=== PATIENT | male | born 1980 | race Caucasian/White ===

== ENCOUNTER 2021-06-30 13:54 | Day surgery (SDC) | payer BC, SELFPAY ==
[2021-06-30] VITALS (8 sets, daily range): BP systolic 127–155; BP diastolic 58–98; PULSE 77–99; RESP 16; TEMP 36.3–36.9; O2SAT 91–98; BMI 32.5
--- NOTE | 2021-06-30 10:10 | HP.PCM_ITS ---
History and Physical Date of Admission: 06/30/21 HISTORY AND PHYSICAL ? Ignacio Ibanez 1980 ? ? REFERRING PHYSICIAN: Rohit Melendez AP* ? CHIEF COMPLAINT: Consult (Perirectal Abscess) ? HPI: The patient is a 41 year old male with a complaint of perirectal abscess.?Duration of symptoms 2 days. ?Associated symptom possible perirectal abscess and drainage. ?Patient states history of perirectal abscesses feels similar. ?Has not used any OTC medication use. ?States pain is 6-7 out of 10 currently. ?Denies any trauma. ?Denies any fever body aches chills nausea vomiting abdominal pain cough chest pain shortness of breath change in bowel or bladder habits. ?Past medical history prescription medication use allergies revi ewed. ? His previous perirectal abscess had to be I&D in the OR.. ? The patient is being seen by me today at the request of Dr. Melendez for my opinion and advice regarding Perirectal abscess (primary encounter diagnosis). ? PAST MEDICAL HISTORY PAST MEDICAL HISTORY Diagnosis Date ? Eczema ? ? Perirectal abscess ? ? 06/2021 ? Ulcerative colitis (HCC) 2012 ? ? PAST SURGICAL HISTORY PAST SURGICAL HISTORY Procedure Laterality Date ? COLONOSCOPY GEN ANES ? ? ? I&D EYELID CYST ? 1980 ? ? CURRENT MEDICATIONS Current Outpatient Medications Medication Sig ? amoxicillin-clavulanic acid (AUGMENTIN) 875-125 mg per tablet Take 1 tablet by mouth twice daily for 7 days. ? multivit-min/folic/vit K/lycop (ONE-A-DAY MEN'S MULTIVITAMIN ORAL) Take by mouth. ? triamcinolone acetonide (KENALOG) 0.1 % cream Apply 1 application to affected area as needed. (Patient not taking: Reported on 06/29/2021 ) ? No current facility-administered medications for this visit. ? ? ALLERGIES: Patient has no known allergies. ? PERSONAL HISTORY: SOCIAL HISTORY Social History ? Tobacco Use ? Smoking status: Former Smoker ? ? Packs/day: 0.50 ? ? Start date: 1999 ? ? Quit date: 2007 ? ? Years since quittin.8 ? Smokeless tobacco: Never Used Substance Use Topics ? Alcohol use: Yes ? ? Comment: socially ? Drug use: No ? FAMILY HISTORY: FAMILY HISTORY FAMILY HISTORY Problem Relation Age of Onset ? Hypertension Mother ? ? Hypertension Father ? ? other (ASD) Father ? ? Hypertension Brother ? ? other (ASD) Brother ? ? other (bone tumor) Maternal Grandmother ? ? Colon Cancer Maternal Grandfather ? ? Hypertension Maternal Grandfather ? ? Stroke Maternal Grandfather ? ? other (esophageal cancer) Paternal Grandmother ? ? other (ASD) Sister ? ? other (ASD) Maternal Aunt ? ? ? REVIEW OF SYMPTOMS: The review of systems data was entered by the nurse and reviewed by me ? Nursing Notes: Aylin Jacobson 06/30/2021 8:32 AM Signed REVIEW OF SYSTEMS: General: The patient denies fatigue, denies weight loss, denies weight gain, denies feeling hot, and denies feelings of cold. Eyes: The patient denies glaucoma, denies eye injury/surgery, does not wear glasses or contacts. Ear/Nose/Throat: The patient denies allergies, denies hayfever, denies ear infections, and denies bloody noses. Cardiovascular: The patient denies chest pain, denies heart disease, denies high blood pressure,denies cardiac stent, denies prior heart attack, denies irregular heart beat, denies high cholesterol, denies poor circulation, denies heart failure, other cardiac issues, denies claudication, denies cold feet, denies peripheral arterial stent. Respiratory: The patient denies tuberculosis, denies pneumonia, denies frequent cough, denies pulmonary embolism, denies shortness of breath, and denies coughing up blood. Gastrointestinal: The patient denies difficulty swallowing, NOTES acid reflux, denies ulcers, denies vomiting, denies jaundice/hepatitis, denies gallbladder problems, denies black or tarry stools, denies hemorrhoids, denies bleeding from rectum, denies diverticulitis, denies constipation, denies diarrhea, denies loss of stool control, and denies hernias. Kidney/Bladder: The patient denies kidney stones, denies urine infections, and denies bloody urine. Skin: The patient denies a history of skin cancer, denies bleeding/changing moles, and denies a history of skin rash. Neurologic: The patient denies a history of epilepsy/convulsions, denies headaches, denies head/spinal injuries, and denies stroke/TIA. Psychiatric: The patient denies psychiatric medications, denies depression, and denies voices, denies substance abuse. Endocrine: The patient denies thyroid disorders, denies diabetes, and denies hormonal problems. Hematologic: The patient denies a history of bruising, denies bleeding, and denies anemia, denies blood clots. Infections: The patient denies a history of measles and mumps, denies rheumatic fever, and denies sexually transmitted diseases. Musculoskeletal: The patient denies back pain/injury, denies back problems, denies sciatica, denies knee/foot trouble, denies arthritis, or denies gout. ? ? When was patient's last Mammogram screening? N/A ? Last Colonoscopy: 2017 ? Aylin Jacobson ? PHYSICAL EXAMINATION: ? General: The patient is 41 year old male, well nourished, well hydrated in no acute distress. The patient is oriented to time, place, and person. ? VITALS: Blood pressure 130/81, pulse 103, temperature 36.7 ?C (98 ?F), height 18 8 cm (6' 2), weight 115.2 kg (254 lb), SpO2 98 %. ? HEENT: Normal cephalic, ataumatic, pupils are equally round, sclera are anicteric, mucous membranes are moist, oropharynx is clear. Neck has no masses, asymmetry or lymphadenopathy. Thyroid is unremarkable. ? Respiratory: Clear to auscultation and percussion. Normal respiratory excursion and pattern. ? Cardiac: Examination is regular rate and rhythm. ? Abdominal exam: Soft, nontender, with no palpable masses. No hepatosplenomegaly. No palpable hernias. ? Rectal exam: Significant induration and tenderness along the left side of the perianal area. Too exquisite to really even examine ? Extremities: no clubbing, cyanosis or edema. No adenopathy. ? Other: ? ? LABORATORY VALUES: As Noted ? RADIOLOGIC STUDIES: As Noted ? Assessment IMPRESSION: Perirectal abscess (primary encounter diagnosis) ? ? PLAN: Going to perform an incision and drainage of a perirectal abscess in the OR. The planned surgical procedure was discussed extensively with the patient. The risks, benefits, anticipated outcomes and possible complications were mentioned. My staff has also explained the procedure in understandable terms and the patient was given the option to take printed material concerning the planned procedure. The patient had the opportunity to ask questions concerning the planned procedure. The patient freely consents to the planned procedure. ? Patient understands that there is a good chance that he could develop a perianal fistula which could require further surgeries. ? Diagnoses: (K61.1) Perirectal abscess (primary encounter diagnosis) ? ? My findings have been communicated to Benigno Benavides MD via shared medical record. This note will be forwarded to Benigno Benavides MD. Return to Clinic: The patient is instructed to follow-up with me 1 week post operatively. ? COVID (Procedure Consent) Procedure Criteria ? Procedure Criteria: Yes Elective The surgeon/proceduralist and patient have discussed in detail the risk of exposure to and/or potential harm posed by the COVID-19 virus with having a surgery/procedure at this time versus the risk of? delaying the surgery/procedure. It is not possible to know either the risk of delaying the surgery or procedure or chance of getting an infection with perfect accuracy, but a joint decision was made between the patient and the surgeon/proceduralist ?to proceed at this time with the scheduled surgery/procedure as indicated on the consent form. ? ? ? Lexx Craft III, MD I have re-examined the patient. There are no clinical changes since date of exam.
[2021-06-30] MEDS: Cefotetan 2 GM in 0.9% NS 100 ML IV (14:12)
[2021-06-30] MEDS: Lactated Ringers 1,000 ML 15 ML IV (14:20)
[2021-06-30] MEDS: BUPIVACAINE LIPOSOME/PF 20 ML VIAL OPERA.SITE (16:25)
--- NOTE | 2021-06-30 16:39 | PCM.OPRPT ---
Problems Associated Problem List Diagnoses (1) Perirectal abscess: Report of Operation Date of Procedure: 06/30/21 Pre-Operative Diagnosis: Perirectal abscess Post-Operative Diagnosis: Same Surgery/Procedure Performed:: Incision and drainage of perirectal abscess Surgeon: Lexx Craft tubing mill setter: None Type of Anesthesia: General Anesthesiologist: Steve Silva Description of Procedure: Patient was brought into the operating room. Placed in the supine position. Under excellent general anesthetic legs were placed up in stirrups and sterilely prepped and draped the perianal area. Patient had a small indurated area just lateral to a rectal fissure I injected Exparel open this up only got a small amount of purulence from it I irrigated out the area. I injected more Exparel. With a small infection in this area I did not think doing anything formal to this rectal fissure was appropriate I injected more Exparel I packed it with a Betadine soaked Curlex and I will send him home on antibiotics pain medication and warm soaks. I am probably going to refer him to colorectal surgery for evaluation. Admit VTE Documentation VTE Present on Admission: No VTE Mechan Device Prophylaxis: SCD's VTE Pharm Prophylaxis ordered?: No Reason prophylaxis not ordered:: Treatment Not Indicated
--- NOTE | 2021-06-30 16:46 | DCINST_ITS ---
Discharge Instructions Procedure Rectal Surgery Diet Discharge Diet: No restrictions Activity Discharge Activity: Return to Normal Activity and May Not Drive (while taking narcotic pain medications.) Additional Activity Instructions:: Do not drive or work with heavy equipment or sign legal documents for 24 hours. Be aware that pain medications may cause nausea. You should typically eat light foods as you take your pain medications. Pain medications may also cause constipation, if you have difficulty with this please discuss with your doctor. Dressing / Incision Additional Dressing/Incision Instructions:: Leave the operative bandage on for 2 days. If a local anesthetic plug was placed in the anal area, try not to expel for 24-[address] dibucaine ointment on the perianal area as needed. Sitz baths twice daily and after bowel movements. Follow Up Care Please Follow Up With: Lexx Craft MD When: Call office to schedule an appointment to be seen in approximately 7 days after surgery. Test Results: Test results from this visit will be discussed in further detail at your follow-up appointment, if applicable. Warm soaks and Epson salts twice daily. May remove the dressings tomorrow morning. Continue antibiotics and soaking Discharge Plan Admission Attending Provider: Lexx Craft Primary Care Provider: Benigno Benavides Discharge Orders/Prescriptions Prescriptions: New levofloxacin 500 mg tablet 500 mg PO DAILY Qty: 7 RF: 0 oxycodone-acetaminophen [Endocet] 5-325 mg tablet 1 tab PO Q4H PRN (Reason: pain) 5 Days Qty: 20 RF: 0 No Action NK RF: 0 Referrals / Follow Up: Benigno Benavides MD [Primary Care Provider] - Amy Manuel PA-C [PHYSICIAN SUPERVISOR SMOKE CONTROL] - Disposition Disposition (needs filled in before D/C Order can be placed): Home, Self Care
== END 2021-06-30 19:00 | disposition home or self-care (01) ==
LOC: SDC 14:00 → AC 14:01
PROVIDERS: PCP Family Medicine; Visit Provider Surgery
PROC: (CPT 46040; principal; 2021-06-30 17:45)
DX: K61.1 Rectal abscess (principal); Z87.891 Personal history of nicotine dependence
CPT/HCPCS: 00902; 46040; J7120; J2405

== ENCOUNTER 2021-07-02 18:01 | Observation (INO) | payer BC, SELFPAY ==
[2021-07-02] VITALS (13 sets, daily range): BP systolic 120–143; BP diastolic 69–84; PULSE 58–88; RESP 16; TEMP 36.2–36.9; O2SAT 98–100; BMI 32.5; BMI 38.7
[2021-07-02 16:09] LABS: Mean Corp Hgb Conc 32.6 g/dL (32-36); Mean Corpuscular Hgb 28.1 pg (27.0-32.0); Mean Corpuscular Volume 86.2 fL (80-94); Mean Platelet Vol. 10.4 fl (6.2-12.0); Platelet Count 226 K/mm3 (150-450); RBC Distribution Width CV 11.7 % (11.6-14.6); RBC Distribution Width SD 36.7 fl (35.1-43.9); Red Blood Count 4.99 M/mm3 (4.6-6.2); White Blood Count 10.8 K/mm3 (4.4-11.0)
[2021-07-02] MEDS: Lubricating Jelly 60 GM Tube 30 GM TOPICAL (16:21)
[2021-07-02 16:23] LABS: Anion Gap 6 (5-15); BUN 9 mg/dL (7-18); BUN/Creat Ratio 9.6 RATIO (10-20); Calcium,Total 8.7 mg/dL (8.5-10.1); Chloride 105 mmol/L (98-107); Creatinine, Serum 0.94 mg/dL (0.70-1.30); EST Glomerular Filtration Rate 95 mL/min (>60); Est Glom Filt Rate - Afr Amer 115 mL/min (>60); Estimated Creatinine Clearance 121.45 ml/min; Glucose 107 mg/dL (74-106); Potassium 3.6 mmol/L (3.5-5.1); Sodium Level 139 mmol/L (136-145)
[2021-07-02] MEDS: BUPIVACAINE LIPOSOME/PF 20 ML VIAL OPERA.SITE (17:25)
--- NOTE | 2021-07-02 17:35 | HP.PCM_ITS ---
History and Physical Date of Admission: 07/02/21 HISTORY AND PHYSICAL Ignacio Ibanez 1980 REFERRING PHYSICIAN: Benigno Benavides MD CHIEF COMPLAINT: No chief complaint on file. HPI: The patient is a 41 year old male with a complaint of perirectal abscess.?Duration of symptoms 2 days. ?Associated symptom possible perirectal abscess and drainage. ?Patient states history of perirectal abscesses feels similar. ?Has not used any OTC medication use. ?States pain is 6-7 out of 10 currently. ?Denies any trauma. ?Denies any fever body aches chills nausea vomiting abdominal pain cough chest pain shortness of breath change in bowel or bladder habits. ?Past medical history prescription medication use allergies reviewed. ? His previous perirectal abscess had to be I&D in the OR.. I took this patient to surgery on the and performed an I&D. Since then he has had increasing discomfort in the perianal area and also has been having some fevers. PAST MEDICAL HISTORY Diagnosis Date ? Eczema ? Perirectal abscess 06/2021 ? Ulcerative colitis (HCC) 2012 PAST SURGICAL HISTORY Procedure Laterality Date ? COLONOSCOPY GEN ANES ? I&D EYELID CYST 1980 Current Outpatient Medications Medication Sig ? amoxicillin-clavulanic acid (AUGMENTIN) 875-125 mg per tablet Take 1 tablet by mouth twice daily for 7 days. ? triamcinolone acetonide (KENALOG) 0.1 % cream Apply 1 application to affected area as needed. (Patient not taking: Reported on 06/29/2021 ) ? multivit-min/folic/vit K/lycop (ONE-A-DAY MEN'S MULTIVITAMIN ORAL) Take by mouth. No current facility-administered medications for this visit. ALLERGIES: Patient has no known allergies. PERSONAL HISTORY: Social History Tobacco Use ? Smoking status: Former Smoker Packs/day: 0.50 Start date: 1999 Quit date: 2008 Years since quittin.8 ? Smokeless tobacco: Never Used Substance Use Topics ? Alcohol use: Yes Comment: socially ? Drug use: No FAMILY HISTORY: FAMILY HISTORY Problem Relation Age of Onset ? Hypertension Mother ? Hypertension Father ? other (ASD) Father ? Hypertension Brother ? other (ASD) Brother ? other (bone tumor) Maternal Grandmother ? Colon Cancer Maternal Grandfather ? Hypertension Maternal Grandfather ? Stroke Maternal Grandfather ? other (esophageal cancer) Paternal Grandmother ? other (ASD) Sister ? other (ASD) Maternal Aunt REVIEW OF SYSTEMS: General: The patient denies fatigue, denies weight loss, denies weight gain, denies feeling hot, and denies feelings of cold. Eyes: The patient denies glaucoma, denies eye injury/surgery, does not wear glasses or contacts. Ear/Nose/Throat: The patient denies allergies, denies hayfever, denies ear infections, and denies bloody noses. Cardiovascular: The patient denies chest pain, denies heart disease, denies high blood pressure,denies cardiac stent, denies prior heart attack, denies irregular heart beat, denies high cholesterol, denies poor circulation, denies heart failure, other cardiac issues, denies claudication, denies cold feet, denies peripheral arterial stent. Respiratory: The patient denies tuberculosis, denies pneumonia, denies frequent cough, denies pulmonary embolism, denies shortness of breath, and denies coughing up blood. Gastrointestinal: The patient denies difficulty swallowing, NOTES acid reflux, denies ulcers, denies vomiting, denies jaundice/hepatitis, denies gallbladder problems, denies black or tarry stools, denies hemorrhoids, denies bleeding from rectum, denies diverticulitis, denies constipation, denies diarrhea, denies loss of stool control, and denies hernias. Kidney/Bladder: The patient denies kidney stones, denies urine infections, and denies bloody urine. Skin: The patient denies a history of skin cancer, denies bleeding/changing moles, and denies a history of skin rash. Neurologic: The patient denies a history of epilepsy/convulsions, denies headaches, denies head/spinal injuries, and denies stroke/TIA. Psychiatric: The patient denies psychiatric medications, denies depression, and denies voices, denies substance abuse. Endocrine: The patient denies thyroid disorders, denies diabetes, and denies hormonal problems. Hematologic: The patient denies a history of bruising, denies bleeding, and denies anemia, denies blood clots. Infections: The patient denies a history of measles and mumps, denies rheumatic fever, and denies sexually transmitted diseases. Musculoskeletal: The patient denies back pain/injury, denies back problems, denies sciatica, denies knee/foot trouble, denies arthritis, or denies gout. ? ? When was patient's last Mammogram screening? N/A ? Last Colonoscopy: 2017 PHYSICAL EXAMINATION: General: The patient is 41 year old male, well nourished, well hydrated in no acute distress. The patient is oriented to time, place, and person. VITALS: Blood pressure 148/84, pulse 114, temperature 36.8 ?C (98.3 ?F), height 188 cm (6' 2), weight 115.2 kg (254 lb), SpO2 97 %. HEENT: Normal cephalic, ataumatic, pupils are equally round, sclera are anicteric, mucous membranes are moist, oropharynx is clear. Neck has no masses, asymmetry or lymphadenopathy. Thyroid is unremarkable. Respiratory: Clear to auscultation and percussion. Normal respiratory excursion and pattern. Cardiac: Examination is regular rate and rhythm. Abdominal exam: Soft, nontender, with no palpable masses. No hepatosplenomegaly. No palpable hernias. Rectal exam: The area around the incision and drainage looks like it is still very red. He is exquisitely tender to touch in this area and I am worried that there is an undrained abscess possibly deeper. I am unable to do a good exam on him secondary to the discomfort that he is feeling. Extremities: no clubbing, cyanosis or edema. No adenopathy. Other: LABORATORY VALUES: As Noted RADIOLOGIC STUDIES: As Noted Assessment IMPRESSION: Perirectal abscess (primary encounter diagnosis) PLAN: I am going to take the patient back to surgery and do an exam under anesthesia and possible further debridement of the perianal area. The planned surgical procedure was discussed extensively with the patient. The risks, benefits, anticipated outcomes and possible complications were mentioned. My staff has also explained the procedure in understandable terms and the patient was given the option to take printed material concerning the planned procedure. The patient had the opportunity to ask questions concerning the planned procedure. The patient freely consents to the planned procedure. Diagnoses: (K61.1) Perirectal abscess (primary encounter diagnosis) Return to Clinic: The patient is instructed to follow-up with me 1 week post operatively. COVID (Procedure Consent) Procedure Criteria Procedure Criteria: Yes Elective The surgeon/proceduralist and patient have discussed in detail the risk of exposure to and/or potential harm posed by the COVID-19 virus with having a surgery/procedure at this time versus the risk of delaying the surgery/procedure. It is not possible to know either the risk of delaying the surgery or procedure or chance of getting an infection with perfect accuracy, but a joint decision was made between the patient and the surgeon /proceduralist to proceed at this time with the scheduled surgery/procedure as indicated on the consent form. Lexx Craft III, MD I have re-examined the patient. There are no clinical changes since date of exam.
--- NOTE | 2021-07-02 17:36 | OP.PCM_ITS ---
Problems Associated Problem List Diagnoses (1) Perirectal abscess: Report of Operation Date of Procedure: 07/02/21 Pre-Operative Diagnosis: Perirectal abscess Post-Operative Diagnosis: Same Surgery/Procedure Performed:: Incision and drainage of perirectal abscess Surgeon: Lexx Craft Type of Anesthesia: Block,Caudal Anesthesiologist: Abdullahi River Estimated Blood Loss (mL): < 25 cc Description of Procedure: Patient was brought back into the operating room. Caudal block was performed by anesthesia. Patient was placed in the prone position his buttocks were taped apart the area in the perianal area was sterilely prepped and draped in the usual fashion patient actually had a perirec janet abscess that was superior to his one that I saw approximately 2 days ago I did not feel this area at all at that time and in fact it had spontaneously opened while he was in the preop area. I opened this area up obtain cultures and sensitivity of this area. I lengthened my incision down towards the anus. I irrigated out this area. I placed peroxide into the abscess cavity and looked into the rectum to see if there were any bubbles coming out and there were none. I injected Exparel all around the wound. I inspected my previous incision was healing there is no signs of fluctuance is small fissure was still there. I packed the wound with a Betadine soaked 4 x 4. Sterile dressings were applied and the patient tolerated the procedure well. The area that was spontaneously open was not present at his first surgery. And the fact that this did go deep I am going to keep him overnight and I am going to obtain a CAT scan of his abdomen and pelvis just to make sure were not dealing with something possibly brewing in the pelvis area particularly since he has a history of ulcerative colitis. Admit VTE Documentation VTE Present on Admission: No VTE Mechan Device Prophylaxis: SCD's VTE Pharm Prophylaxis ordered?: No Reason prophylaxis not ordered:: Treatment Not Indicated
[2021-07-02] MEDS: 0.9% Normal Saline 1,000 ML 80 ML IV (18:42)
[2021-07-02] MEDS: Acetaminophen 500 MG Tablet 1000 MG PO ×2 (19:27→23:50)
[2021-07-02] MEDS: Docusate Sodium 100 MG Capsule PO (21:24)
[2021-07-02] MEDS: oxyCODONE 5 MG Tablet PO (21:36)
[2021-07-02] MEDS: HYDROmorphone 0.5 MG/0.5 ML SYRINGE IV (22:40)
[2021-07-03] MEDS: HYDROmorphone 0.5 MG/0.5 ML SYRINGE IV (00:53)
[2021-07-03 01:56] VITALS: BP 148/82; PULSE 64; RESP 18; TEMP 36.4; O2SAT 99
[2021-07-03] MEDS: oxyCODONE 5 MG Tablet PO (02:04)
--- NOTE | 2021-07-03 05:55 | CT_ITS ---
STUDY: CT ABDOMEN AND PELVIS WITH CONTRAST REASON FOR EXAM: Male, 41 years old. Perirectal abscess RADIATION DOSAGE (If Supplied By Facility): CTDIvol = ( 16.84 ) mGy, DLP = ( 1636.68 ) mGycm TECHNIQUE: Transaxial images were obtained from the dome of the diaphragm to the symphysis pubis without oral contrast. Oral and amp; IV Gastrografin and amp; 100mL Isovue-370 was administered. Sagittal and coronal images were reconstructed. Individualized dose optimization techniques were used for this CT. COMPARISON: None. FINDINGS: The visualized lung bases are unremarkable. The visualized portions of the heart are within normal limits. Normal liver. Normal gallbladder and extrahepatic biliary system. Normal spleen. Normal pancreas. Normal bilateral adrenal glands. Normal right kidney. Normal left kidney. Normal visualized stomach. Normal small intestine. Normal colon. Circumferential rectal wall thickening. No perirectal fluid collection. The appendix is visualized and appears normal. Normal abdominal aorta. Normal inferior vena cava. Normal retroperitoneum. Normal urinary bladder. There are prostatic calcifications. Normal abdominal wall. Thoracolumbar vertebral alignment is maintained. CT/Abdomen/Pelvis WITH Contrast IMPRESSION: Proctitis without finding of perirectal abscess. Electronically Signed: Trung Scott MD at 6:56 EST Tel , Service support ,
[2021-07-03 07:04] LABS: Absolute Lymphocyte Count 1.58 X10^3/uL (0.83-4.51); Absolute Neutrophil Count 7.3 X10^3/uL (2.0-7.7); Basophil# 0.05 X10^3/uL; Basophil% 0.5 % (0-1); Eosinophil# 0.05 X10^3/uL; Eosinophils% 0.5 % (0-5); Hematocrit 38.3 % (40-54); Hemoglobin 12.7 g/dL (13.0-16.5); Lymphocyte # 1.58 X10^3/ul (0.83-4.51); Lymphocyte % 16.1 % (19-41); Mean Corp Hgb Conc 33.2 g/dL (32-36); Mean Corpuscular Hgb 28.3 pg (27.0-32.0); Mean Corpuscular Volume 85.5 fL (80-94); Mean Platelet Vol. 10.5 fl (6.2-12.0); Monocyte# 0.78 X10^3/uL; Monocyte% 7.9 % (0-10); NRBC Flagged by Analyzer 0 % (0-5); Neutrophil # 7.34 X10^3/uL (2.7-7.7); Neutrophil % 74.7 % (47-70); Platelet Count 233 K/mm3 (150-450); RBC Distribution Width CV 11.7 % (11.6-14.6); RBC Distribution Width SD 36.4 fl (35.1-43.9); Red Blood Count 4.48 M/mm3 (4.6-6.2); White Blood Count 9.8 K/mm3 (4.4-11.0)
[2021-07-03 07:20] LABS: Anion Gap 4 (5-15); BUN 6 mg/dL (7-18); BUN/Creat Ratio 7.2 RATIO (10-20); Calcium,Total 8.5 mg/dL (8.5-10.1); Chloride 105 mmol/L (98-107); Creatinine, Serum 0.83 mg/dL (0.70-1.30); EST Glomerular Filtration Rate 109 mL/min (>60); Est Glom Filt Rate - Afr Amer 132 mL/min (>60); Estimated Creatinine Clearance 137.55 ml/min; Glucose 104 mg/dL (74-106); Potassium 3.9 mmol/L (3.5-5.1); Sodium Level 136 mmol/L (136-145)
[2021-07-03 07:31] VITALS: O2SAT 98
[2021-07-03 08:10] VITALS: BP 131/73; PULSE 53; RESP 16; TEMP 36.6; O2SAT 100
[2021-07-03] MEDS: Docusate Sodium 100 MG Capsule PO (10:03)
[2021-07-03] MEDS: Acetaminophen 500 MG Tablet 1000 MG PO (11:16)
--- NOTE | 2021-07-03 11:17 | PCM.PN.SRG ---
Subjective Subjective Patient no longer complaining of pain. Is having bowel movements. Objective Data Objective Data Vital Signs: Vital Signs Temp Pulse Resp BP Pulse Ox 97.8 F 53 L 16 131/73 H 100 07/03/21 08:10 07/03/21 08:10 07/03/21 08:10 07/03/21 08:10 07/03/21 08:10 Oxygen Delivery Method Room Air Weight: 302 lb 4.06 oz Body Mass Index (BMI) 38.7 Intake & Output: Intake and Output for Last 24 Hours 07/01/21 07/02/21 07/03/21 23:59 23:59 23:59 Intake Total 1050 / 1050 940.00 / 940.00 Balance 1050 / 1050 940.00 / 940.00 Lab / Micro Data Result Diagrams: 07/03/21 06:29 07/03/21 06:29 Labs: Laboratory Results - last 24 hr 07/02/21 15:55: Sodium 139, Potassium 3.6, Chloride 105, Carbon Dioxide 28.0, Anion Gap 6, BUN 9, Creatinine 0.94, Estim Creat Clear Calc 121.45, Est GFR (MDRD) Af Amer 115, Est GFR (MDRD) Non-Af 95, BUN/Creatinine Ratio 9.6 L, Glucose 107 H, Calcium 8.7 07/02/21 15:55: WBC 10.8, RBC 4.99, Hgb 14.0, Hct 43.0, MCV 86.2, MCH 28.1, MCHC 32.6, RDW Std Deviation 36.7, RDW Coeff of Afsaneh 11.7, Plt Count 226, MPV 10.4 07/03/21 06:29: WBC 9.8, RBC 4.48 L, Hgb 12.7 L, Hct 38.3 L, MCV 85.5, MCH 28.3, MCHC 33.2, RDW Std Deviation 36.4, RDW Coeff of Afsaneh 11.7, Plt Count 233, MPV 10.5, Immature Gran % (Auto) 0.300, Neut % (Auto) 74.7 H, Lymph % (Auto) 16.1 L, [place] % (Auto) 7.9, Eos % (Auto) 0.5, Baso % (Auto) 0.5, Absolute Neuts (auto) 7.3, Absolute Lymphs (auto) 1.58, Nucleated RBC % 0 07/03/21 06:29: Sodium 136, Potassium 3.9, Chloride 105, Carbon Dioxide 27.0, Anion Gap 4 L, BUN 6 L, Creatinine 0.83, Estim Creat Clear Calc 137.55, Est GFR (MDRD) Af Amer 132, Est GFR (MDRD) Non-Af 109, BUN/Creatinine Ratio 7.2 L, Glucose 104, Calcium 8.5 Micro: Microbiology 07/02/21 17:15 Abs - Other Gram Stain - Final Radiography Diagnostic Testing: Radiology Impression Abdomen/Pelvis CT 07/03/21 05:55 IMPRESSION: Proctitis without finding of perirectal abscess. Electronically Signed: Trung Scott MD at 6:56 EST Tel , Service support , Assessment & Plan Assessment/Plan (1) Perirectal abscess: PLAN: Postoperative day #1 We will have wound care nurse see patient today go over dressing changes and he can be d/c home
--- NOTE | 2021-07-03 12:07 | WOUNDNOTE ---
Was asked to see patient by Dr Craft for wound care teaching for mau rectal abscess. patient is POD#1. patient states that he has had abscesses in the past. patient has a history of colitis. denies history of diabetes. present at bedside for wound care teaching. both are very attentive and appreciative. gently removed the packing. there was a moderate amount of salmon colored drainage noted. no odor noted. cleansed inner buttocks with soap and water. pat dry. gently packed opening with 1/2 nugauze. educated to be sure there is enough of a tail to be able to easily remove the packing. packed approx 1 1/2 inches. pt painful with packing and was difficult to keep buttocks to pack. aware that she does not need to pack the wound tightly, just enough to keep the site open to drain. will send patient with 1/2 and 1/4 nugauze and aware that as the wound heals, less packing will be needed. placed a folded 4x4 dressing and gave patient options of using a mau pad in his underwear for drainage as well rather than placing tape to the skin. feels she will be able to pack the opening and Dr Craft reviewed soaks and showering with patient. no further needs voiced. patient and very appreciative.
== END 2021-07-03 12:45 | disposition home or self-care (01) ==
LOC: MS2 07-03 10:09 → SDC 07-03 10:56
PROVIDERS: Admitting Provider Surgery; PCP Family Medicine; Referring Provider Surgery; Visit Provider Surgery
PROC: (CPT 46040; principal; 2021-07-02 17:15)
DX: K61.1 Rectal abscess (principal); K51.90 Ulcerative colitis, unspecified, without complications; Z87.891 Personal history of nicotine dependence
CPT/HCPCS: 00902; 46040; 36415; 74177; 80048; 85025; 85027; 87015; 87070; 87075; 87077; 87102; 87116; 87186; 87205; 87206; 96361; 96365; 96366; 96375; 96376; 99218; 99251; J7030; J7120; Q9967; G0378; G0463; J2405

== ENCOUNTER 2022-05-06 05:51 | Day surgery (SDC) | payer BC, SELFPAY ==
[2022-05-06] MEDS: Lactated Ringers 1,000 ML 15 ML IV (06:31)
--- NOTE | 2022-05-06 06:31 | PCM.HP.BLA ---
History and Physical Date of Admission: 05/06/22 41 M who presents to the office today for Initial consultation. Ignacio established with this clinic 01.29.22 with a history of UC diagnosed in 2010; previously established with [facility] in [place]. Symptoms at diagnosis included varying number and consistency of stools with bloody diarrhea and abdominal pain; colonoscopy performed 02.01.11 finding left UC with several small ulcers, confirmed with Biopsy. Previously utilized Balsalazide 750mg 3tabs BID, this ended many years ago as he was not having symptoms. ?Reports one flare in the last two years. Denies significant symptoms at this time. Reports blood in stools periodically; stools once a day and feels they are normal to him, poor food choices cause loose stools. GERD history with periodic flares, r/t food intake, requiring use of omeprazole Last colonoscopy approximately 2015 unsure of results, but feels everything was ok/without progression of UC. History of perirectal abscess surgically drained 06.30.21 and 07.02.21. PMH eczema, GERD (omeprazole), hyperlipidemia. FH grandfather colon cancer; grandmother esophageal cancer, stroke, heart disease. ROS Const Constitutional: No anorexia, fatigue, fever(s), weight change or sleep problems Eyes Eyes: No change in vision ENT ENT: No abnormal hearing, difficulty swallowing, mouth lesions, tongue swelling or throat swelling Resp Respiratory: No cough or shortness of breath Cardio Cardiology: No chest pain at rest, chest pain with exertion, shortness of breath or dyspnea on exertion Gastro GI: No difficulty swallowing Genitourinary Male: No difficulty urinating or burning urination Musc Musculoskeletal: No joint pain, joint swelling, muscle weakness or decreased muscle mass Skin Skin: No hair loss in leg, yellowing of the eye, itchy eyes, rash, skin ulcer or skin swelling Neuro Neurology: No abnormal hearing, abnormal movements, confusion, unsteady gait/balance or memory loss Psych Psychiatric: No anxiety, No confusion and No memory loss Endo Endocrine: No fatigue or weight change Aller/Imm Allergy/Immunologic: No itchy eyes, throat swelling or tongue swelling Semaj/Lymp Hematologic/Lymphatic: No easy bleeding, easy bruising or enlarged lymph nodes Exam Const General: cooperative and comfortable Nutritional Appearance: average body habitus and well nourished HENMT Head: normal to inspection Ears: hearing grossly normal bilaterally Nose: external nose normal Face and sinus: normal facial exam Mouth: oral mucosae normal Throat: posterior oropharynx normal Eyes General: appearance normal, both eyes and all related structures Neck Neck: normal visual inspection Chest Chest palpation & inspection: normal inspection of the chest and normal palpation of entire chest wall Resp Effort & Inspection: normal respiratory effort Auscultation: Bilateral: Clear to Auscultation Cardio Palpation: normal PMI Rate: regular rate Rhythm: regular rhythm GI Inspection: normal to inspection Auscultation: normal bowel sounds Percussion: normal to percussion Palpation: no hepatosplenomegaly Skin General: no rashes or lesions noted Neuro General: patient alert Extrem General: normal to inspection Psych Affect: normal affect Quality Reporting Tobacco Screening ([facility] 138) Smoking Status: Never smoker Assessment and Plan Assessment and Plan (1) Ulcerative colitis: ?Status:?Acute ? ? ? Orders:?Orders: ? CRP Today ? ? ? Erythrocyte Sed Rate Today ? ? ? Carcinoembryonic Antigen Today ?Plan - Dr. Palomino Friend, DO: We will get a colonoscopy to evaluate his lower GI tract.? We will also get a baseline ESR CRP fecal calprotectin and CEA level normal.? We talked about possibly administering aspirin and vitamin D therapy as prophylaxis for colonic polyps.? Pending staging of his ulcerative colitis we will make recommendations regarding medicines, probiotics and diet. (2) Family history of cancer: ?Status:?Acute ?Comment: Grandmother esophageal Grandfather colon ? ? ? Orders:?Orders: ? CRP Today ? ? ? Erythrocyte Sed Rate Today ? ? ? Carcinoembryonic Antigen Today ?Plan - Dr. Palomino Friend, DO: We reviewed screening with a colonoscopy.? He was explained alternatives, risk, benefits including not withstanding bleeding, infection, sepsis, perforation, need for emergent surgery .? Have an ASA of 1. (3) GERD (gastroesophageal reflux disease): ?Status:?Acute ? ? ? Orders:?Orders: ? CRP Today ? ? ? Erythrocyte Sed Rate Today ? ? ? Carcinoembryonic Antigen Today ?Plan - Dr. Palomino Friend, DO: We will get a upper endoscopy to screen for Gaona's esophagus.? At this time he is not having an symptoms of reflux disease.? However he does occasionally have symptoms associated with burning in his chest, nausea and dyspepsia. I have re-examined the patient. There are no clinical changes since date of exam.
[2022-05-06 06:32] VITALS: BP 125/85; PULSE 68; RESP 16; TEMP 36.8; O2SAT 99; BMI 34.0
--- NOTE | 2022-05-06 07:00 | IMM_PTH ---
PATIENT: JD WALLIS LOC: [facility] U#:[id number] AGE/SX: 41/M ROOM: RE05/06/[address]: Dr. Candelario Sawyer DO : 1980 BED: DIS: 05/06/2022 SPEC #: [id number] RECD: 05/06/22 13:26 STATUS: SANIA REDarrius #: [id number] KRISTY: 05/06/22 07:[address]: Candelario Sawyer DEPT: IMMUNOHISTOCHEMISTRY RECD BY: Ana Petersen ENTERED: 05/06/22 13:27 SP TYPE: IMMUNO OTHR DR: Dr. Benigno Benavides MD Tissues: B - Stomach, NOS C - Esophageal mucous membrane Procedures: H Pylori (initial) P53 (initial) KI-67 (add) PHYSICIAN & INSTITUTION [place] [address] SPECIMEN INFORMATION: Tissue Source: B - Gastric body biopsy, C ? Distal esophagus biopsy Clinical Info: Ulcerative colitis, family history of cancer, GERD Specimen Number: [id number] B & C CPT code: 88352 x2, 11054 METHODOLOGY: Deparaffinized sections of prefer/formalin-fixed tissue or PAP/DQ stained slides are incubated with monoclonal/polyclonal antibodies/oligonucleotide probes. Localization is made via biotin free immunoperoxidase method. Appropriate controls are performed and reacted as expected. Results on target cell population are indicated in the following table: RESULTS: ANTIBODY / CLONE RESULT Block B H Pylori (polyclonal) negative Block C P53 (DO-7) negative Ki-67 (30-9) positive, very low These tests were developed and their performance characteristics determined by [facility]. They may not have been cleared or approved by the U.S. Food and Drug Administration. The FDA has determined that such clearance or approval is not necessary. The above immunohistochemical/dualISH markers are ordered and reviewed by the Pathologist. INTERPRETATION: B. Gastric body, biopsy: Negative for Helicobacter pylori organisms. C. Distal esophagus, biopsy: Negative for dysplasia. MICHELLE:aida 05/10/2022
--- NOTE | 2022-05-06 07:00 | EGD_PTH ---
PATIENT: JD WALLIS LOC: [facility] U#:[id number] AGE/SX: 41/M ROOM: RE05/06/[address]: Dr. Candelario Sawyer DO : 1980 BED: DIS: 05/06/2022 SPEC #: [id number] RECD: 05/06/22 09:58 STATUS: SANIA RENATE #: [id number] KRISTY: 05/06/22 07:[address]: Candelario Sawyer DEPT: SURGICAL PATHOLOGY RECD BY: Danica Marroquin ENTERED: 05/06/22 10:52 SP TYPE: EGD BIOPSY OT DR: Dr. Benigno Benavides MD Tissues: A - Duodenum, NOS B - Gastric mucous membrane C - Esophagus, NOS D - Ileum, NOS E - COLON BIOPSY Procedures: Special Stain Group II Surgery Specimen Level IV Alcian Blue/PAS (control) HEADER OPERATION: Colonoscopy, EGD ([facility] [place]) PRE-OP DIAGNOSIS: Ulcerative colitis, family history of cancer, GERD TISSUE SUBMITTED: A ? Duodenum biopsy, B ? Gastric body biopsy, C ? Distal esophagus biopsy, D ? Terminal ileum biopsy, E ? Left colon biopsy MICROSCOPIC DIAGNOSIS A. Duodenum, biopsy: A fragment of duodenal mucosa with mild nonspecific chronic inflammation and Vilma gland hyperplasia. B. Gastric body, biopsy: Mild gastritis. See microscopic description and comment. C. 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 Chronic inflammation. Negative for dysplasia. See comment. D. Terminal ileum, biopsy: Fragments of small intestinal mucosa, no pathologic diagnosis. See comment. E. Left colon, biopsy: Moderate chronic active colitis. See microscopic description and comment. SJ:aida 05/07/2022 COMMENT B. The results of immunohistochemistry for Helicobacter pylori will be reported separately ([id number]). C. Immunohistochemistry ([id number]) for P53 and Ki-67 will be performed and results will be reported separately. Alcian blue/PAS stain with matched control is used in the evaluation of the specimen. The specimen predominantly consists of gastric mucosa. D. Prominent lymphoid aggregates are noted. E. The findings are consistent with inflammatory bowel disease (ulcerative colitis). Correlation with clinical, endoscopic findings and appropriate follow up are necessary. MICROSCOPIC DESCRIPTION Slides are reviewed. B. The specimen shows fragments of gastric mucosa with chronic inflammatory cell infiltrates in the lamina propria consisting of lymphocytes and plasma cells, consistent with mild chronic gastritis. E. The specimen shows fragments of colonic mucosa with acute and chronic inflammatory cell infiltrates in the lamina propria, cryptitis, crypt abscesses, mild glandular distortion and lymphoid aggregates. Granulomas are not seen. No evidence of dysplasia. GROSS DESCRIPTION A - Received in fixative is one container labeled with the patient's name and designated duodenum biopsy. The specimen consists of one irregular fragment of light gupta soft tissue that measures 00.3 x 0.3 x 0.1 cm. The specimen is totally submitted in one cassette. B - Received in fixative is one container labeled with the patient's name and designated gastric body biopsy. The specimen consists of two irregular fragments of light gupta soft tissue that in aggregate measure 1 x 0.6 x 0.1 cm. The specimen is totally submitted in one cassette. C - Received in fixative is one container labeled with the patient's name and designated distal esophagus biopsy. The specimen consists of multiple irregular fragments of light gupta soft tissue that in aggregate measure 1.5 x 0.3 x 0.1 cm. The specimen is totally submitted in one cassette. D - Received in fixative is one container labeled with the patient's name and designated terminal ileum biopsy. The specimen consists of multiple irregular fragments of light gupta soft tissue that in aggregate measure 1 x 0.5 x 0.1 cm. The specimen is totally submitted in one cassette. E - Received in fixative is one container labeled with the patient's name and designated left colon biopsy. The specimen consists of multiple irregular fragments of light gupta soft tissue that in aggregate measure 1.5 x 0.5 x 0.1 cm. The specimen is totally submitted in one cassette. / SJ:rg 05/06/2022 TC:2 CPT: 24173 x5, 61852
[2022-05-06 07:33] VITALS: BP 125/85; BP 133/77; PULSE 80; RESP 16; TEMP 37.3; O2SAT 98
--- NOTE | 2022-05-06 07:35 | OP.EGD_ITS ---
Patient Name: Ignacio Ibanez Procedure Date: 05/06/2022 6:56 AM Date of : 1980 Age: 41 Procedure: Upper GI endoscopy Indications: Functional Dyspepsia, Suspected esophageal reflux Providers: Candelario Sawyer DO Referring MD: Candelario Sawyer DO Medicines: Monitored Anesthesia Care Patient Profile: This is a 41 year old male. Refer to note in patient chart for documentation of history and physical. Patient has symptoms of chronic dyspepsia and chronic heartburn. Complications: No immediate complications. Procedure: Pre-Anesthesia Assessment: - Prior to the procedure, a History and Physical was performed, and patient medications and allergies were reviewed. The patient is competent. The risks and benefits of the procedure and the sedation options and risks were discussed with the patient. All questions were answered and informed consent was obtained. Patient identification and proposed procedure were verified by the physician in the pre-procedure area. Mental Status Examination: alert and oriented. Airway Examination: normal oropharyngeal airway and neck mobility. Respiratory Examination: clear to auscultation. CV Examination: normal. Prophylactic Antibiotics: The patient does not require prophylactic antibiotics. Prior Anticoagulants: The patient has taken no previous anticoagulant or antiplatelet agents. ASA Grade Assessment: II - A patient with mild systemic disease. After reviewing the risks and benefits, the patient was deemed in satisfactory condition to undergo the procedure. The anesthesia plan was to use monitored anesthesia care (MAC). Immediately prior to administration of medications, the patient was re-assessed for adequacy to receive sedatives. The heart rate, respiratory rate, oxygen saturations, blood pressure, adequacy of pulmonary ventilation, and response to care were monitored throughout the procedure. The physical status of the patient was re-assessed after the procedure. After obtaining informed consent, the endoscope was passed under direct vision. Throughout the procedure, the patient's blood pressure, pulse, and oxygen saturations were monitored continuously. The pediatric colonoscope was introduced through the mouth, and advanced to the second part of duodenum. The upper GI endoscopy was accomplished without difficulty. The patient tolerated the procedure well. Scope In: 7:04:31 AM Scope Out: 7:11:21 AM Total Procedure Duration Time 0 hours 6 minutes 50 seconds Findings: There were esophageal mucosal changes suspicious for short-segment Gaona's esophagus present in the lower third of the esophagus. The maximum longitudinal extent of these mucosal changes was 3 cm in length. Mucosa was biopsied with a cold forceps for histology in a targeted manner at intervals of 1 cm in the lower third of the esophagus. One specimen bottle was sent to pathology. Verification of patient identification for the specimen was done. Estimated blood loss was minimal. A small hiatal hernia was present. Patchy mildly erythematous mucosa without bleeding was found in the gastric body. Biopsies were taken with a cold forceps for histology. Verification of patient identification for the specimen was done. Estimated blood loss was minimal. Patchy mild inflammation characterized by congestion (edema) was found in the first portion of the duodenum. Biopsies were taken with a cold forceps for histology. Verification of patient identification for the specimen was done. Estimated blood loss was minimal. Impression: - Esophageal mucosal changes suspicious for short-segment Gaona's esophagus. Biopsied. - Small hiatal hernia. - Erythematous mucosa in the gastric body. Biopsied. - Duodenitis. Biopsied. Recommendation: - Written discharge instructions were provided to the patient. - The signs and symptoms of potential delayed complications were discussed with the patient. - Patient has a contact number available for emergencies. - Return to normal activities tomorrow. - Resume previous diet. - Continue present medications. - Await pathology results. - Repeat upper endoscopy in 1 year for surveillance. - Return to GI clinic. Procedure Code(s): --- Professional --- 71580, Esophagogastroduodenoscopy, flexible, transoral; with biopsy, single or multiple CPT copyright 2017 [employer]. All rights reserved. The codes documented in this report are preliminary and upon metal patternmaker apprentice review may be revised to meet current compliance requirements. Candelario Sawyer DO 05/06/2022 7:35:26 AM This report has been signed electronically. Number of Addenda: 0 Note Initiated On: 05/06/2022 6:56 AM
--- NOTE | 2022-05-06 07:35 | OP.CCLET_ITS ---
05/06/2022 Benigno Benavides Re : Upper GI endoscopy procedure for Ignacio Ibanez Dear [place] This procedure was performed on April. My impressions and recommendations are as follows: Impressions : - Esophageal mucosal changes suspicious for short-segment Gaona's esophagus. Biopsied. - Small hiatal hernia. - Erythematous mucosa in the gastric body. Biopsied. - Duodenitis. Biopsied. Recommendations : - Written discharge instructions were provided to the patient. - The signs and symptoms of potential delayed complications were discussed with the patient. - Patient has a contact number available for emergencies. - Return to normal activities tomorrow. - Resume previous diet. - Continue present medications. - Await pathology results. - Repeat upper endoscopy in 1 year for surveillance. - Return to GI clinic. My findings are described in the full procedure note, which is enclosed. If I can be of further assistance, please feel free to contact me at . Sincerely, Candelario Sawyer, 05/06/2022 7:35:26 AM This report has been signed electronically.
[2022-05-06 07:38] VITALS: BP 122/84; BP 125/85; PULSE 73; RESP 16; O2SAT 95
--- NOTE | 2022-05-06 07:41 | OP.CCLET_ITS ---
05/06/2022 Benigno Benavides Re : Colonoscopy procedure for Ignacio Ibanez Dear [place] This procedure was performed on April. My impressions and recommendations are as follows: Impressions : - Mild (Gonzalez Score 1) ulcerative colitis, unchanged since the last examination. Biopsied. - Congested mucosa in the terminal ileum. Biopsied. Recommendations : - Written discharge instructions were provided to the patient. - The signs and symptoms of potential delayed complications were discussed with the patient. - Patient has a contact number available for emergencies. - Return to normal activities tomorrow. - Resume previous diet. - Continue present medications. - Await pathology results. - Repeat colonoscopy in 2 years for surveillance based on pathology results. My findings are described in the full procedure note, which is enclosed. If I can be of further assistance, please feel free to contact me at . Sincerely, Candelario Friend, 05/06/2022 7:40:22 AM This report has been signed electronically.
--- NOTE | 2022-05-06 07:41 | OP.COLON_ITS ---
Patient Name: Ignacio Ibanez Procedure Date: 05/06/2022 7:11 AM Date of : 1980 Age: 41 Procedure: Colonoscopy Indications: Left-sided chronic ulcerative colitis Providers: Candelario Sawyer DO Referring MD: Candelario Sawyer DO Medicines: Monitored Anesthesia Care Patient Profile: This is a 41 year old male. Refer to note in patient chart for documentation of history and physical. Patient has symptoms of chronic dyspepsia and chronic heartburn. Last Colonoscopy: 3 years ago. Complications: No immediate complications. Procedure: Pre-Anesthesia Assessment: - Prior to the procedure, a History and Physical was performed, and patient medications and allergies were reviewed. The patient is competent. The risks and benefits of the procedure and the sedation options and risks were discussed with the patient. All questions were answered and informed consent was obtained. Patient identification and proposed procedure were verified by the physician in the pre-procedure area. Mental Status Examination: alert and oriented. Airway Examination: normal oropharyngeal airway and neck mobility. Respiratory Examination: clear to auscultation. CV Examination: normal. Prophylactic Antibiotics: The patient does not require prophylactic antibiotics. Prior Anticoagulants: The patient has taken no previous anticoagulant or antiplatelet agents. ASA Grade Assessment: II - A patient with mild systemic disease. After reviewing the risks and benefits, the patient was deemed in satisfactory condition to undergo the procedure. The anesthesia plan was to use monitored anesthesia care (MAC). Immediately prior to administration of medications, the patient was re-assessed for adequacy to receive sedatives. The heart rate, respiratory rate, oxygen saturations, blood pressure, adequacy of pulmonary ventilation, and response to care were monitored throughout the procedure. The physical status of the patient was re-assessed after the procedure. After I obtained informed consent, the scope was passed under direct vision. Throughout the procedure, the patient's blood pressure, pulse, and oxygen saturations were monitored continuously. The colonoscope was introduced through the anus and advanced to the terminal ileum. The terminal ileum, ileocecal valve, appendiceal orifice, and rectum were photographed. Scope In: 7:13:44 AM Scope Withdrawal Time 0 hours 12 minutes 53 seconds Scope Out: 7:28:58 AM Total Procedure Duration Time 0 hours 15 minutes 14 seconds Findings: The perianal and digital rectal examinations were normal. Inflammation was found in a continuous and circumferential pattern from the sigmoid colon to the splenic flexure. This was graded as Gonzalez Score 1 (mild, with erythema, decreased vascular pattern, mild friability), and when compared to the previous examination, the findings are unchanged. Biopsies were taken with a cold forceps for histology. Verification of patient identification for the specimen was done. Estimated blood loss was minimal. A patchy area of the terminal ileum was congested. Biopsies were taken with a cold forceps for histology. Verification of patient identification for the specimen was done. Estimated blood loss was minimal. Impression: - Mild (Gonzalez Score 1) ulcerative colitis, unchanged since the last examination. Biopsied. - Congested mucosa in the terminal ileum. Biopsied. Recommendation: - Written discharge instructions were provided to the patient. - The signs and symptoms of potential delayed complications were discussed with the patient. - Patient has a contact number available for emergencies. - Return to normal activities tomorrow. - Resume previous diet. - Continue present medications. - Await pathology results. - Repeat colonoscopy in 2 years for surveillance based on pathology results. Procedure Code(s): --- Professional --- 30362, Colonoscopy, flexible; with biopsy, single or multiple CPT copyright 2017 [employer]. All rights reserved. The codes documented in this report are preliminary and upon pricing lead review may be revised to meet current compliance requirements. Candelario Sawyer DO 05/06/2022 7:40:22 AM This report has been signed electronically. Number of Addenda: 0 Note Initiated On: 05/06/2022 7:11 AM
[2022-05-06 07:43] VITALS: BP 125/85; BP 127/79; PULSE 76; RESP 16; O2SAT 99
[2022-05-06 07:48] VITALS: BP 124/81; BP 125/85; PULSE 61; RESP 16; TEMP 36.4; O2SAT 95
[2022-05-06 08:10] VITALS: BP 125/85
== END 2022-05-06 08:17 | disposition home or self-care (01) ==
LOC: EN 05:51 → AC 05:52
PROVIDERS: PCP Family Medicine; Referring Provider Internal Medicine Gastroenterology; Visit Provider Internal Medicine Gastroenterology
PROC: 0DJD8ZZ Inspection of Lower Intestinal Tract, Via Natural or Artificial Opening Endoscopic (ICD-10-PCS; CPT 45378; principal; 2022-05-06 06:55)
DX: K51.50 Left sided colitis without complications (principal); K29.70 Gastritis, unspecified, without bleeding; K29.80 Duodenitis without bleeding; K22.70 Barrett's esophagus without dysplasia; K44.9 Diaphragmatic hernia without obstruction or gangrene; K21.9 Gastro-esophageal reflux disease without esophagitis; R19.7 Diarrhea, unspecified; E78.5 Hyperlipidemia, unspecified; Z79.899 Other long term (current) drug therapy; Z80.0 Family history of malignant neoplasm of digestive organs
CPT/HCPCS: 43239; 45380; 87493; 87506; 88305; 88313; 88341; 88342; J7120; J2405

== ENCOUNTER 2023-04-17 08:53 | Emergency (ER) | payer BC, SELFPAY ==
[2023-04-17 08:53] VITALS: BP 137/105; PULSE 94; RESP 16; TEMP 36.2; O2SAT 98; BMI 34.0
--- NOTE | 2023-04-17 09:46 | EDS_ITS ---
HPI History of Present Illness Chief Complaint: Back Informant: patient Onset/Context/Timing Onset: Weeks (1) Context: Gradual Onset Timing: Continuous Quality: Sharp and Aching Location: Lumbar, Buttock and Right Leg Worsened by: improves with Movement Relieved by: Medications Associated Symptoms Associated Symptoms: Tingling and Radiation to Right Leg; Negative for Numbness, Radiation to Left Leg, Fever, Abdominal Pain, Dysuria, Unable to Ambulate, Unable to Transfer, Urinary Retention, Urinary Incontinence, Constipation or Fecal Incontinence Narrative Narrative: Patient presents with back pain that has been constant for the past week. Patient states it is greatly gotten worse over the past week. Patient states it is constant. Patient states he saw his primary care physician 4 days ago and was started on Flexeril and prednisone. Patient states the prednisone seems to be helping slightly. Patient states his pain is aching and sharp at times. Patient states the pain is mainly over the right lower lumbar area and radiates into his right thigh. Patient states it is worse with movement. Patient admits to some tingling but denies any numbness or weakness. Patient denies any bowel or bladder changes. Patient denies any saddle anesthesia. [facility] Medical History Cyst Family history of cancer History of ulceration Normal colonoscopy Open wound Home Medications omeprazole 20 mg capsule,delayed release 20 mg PO DAILY 05/05/22 [History Last Taken Unknown] omeprazole 40 mg capsule,delayed release 40 mg PO DAILY #90 caps 05/17/22 [Rx Last Taken Unknown] hydrocodone-acetaminophen 5-325mg 5mg-325mg 1 tab PO Q6H PRN PRN Pain 3 days #10 TABLETS 04/17/23 [Rx Last Taken Unknown] Allergy/AdvReac Type Severity Reaction Status Date / Time No Known Allergies Allergy Verified 05/05/22 08:37 Surgical History Hx of surgical procedure Hx of surgical procedure Status post incision and drainage Social History Smoking Status: Never smoker ROS ROS ED Constitutional Constitutional ED: Denies chills or fever(s) Eyes Eyes: Denies blurry vision or change in vision ENT ENT ED: Denies rhinorrhea or sore throat Cardiovascular Cardiovascular: Denies chest pain or palpitations Respiratory/Chest Respiratory/Chest: Denies cough or dyspnea Gastrointestinal Gastrointestinal: Denies nausea or vomiting Genitourinary Genitourinary ED: Denies dysuria or hematuria Musculoskeletal Musculoskeletal: Reports back pain; Denies neck pain Integumentary Denies abscess or rash Neurologic Neurologic: Denies headache(s) or weakness Allergic/Immunologic Allergic/Immunologic ED: Denies mouth swelling or urticaria EXAM Physical Exam Const Vital Signs: 04/17/23 08:53 Temperature 97.2 F L Temperature Source Temporal Pulse Rate 94 Respiratory Rate 16 Blood Pressure 137/105 H Blood Pressure Mean 115 Pulse Ox 98 Oxygen Delivery Method Room Air Positive well nourished, well developed and obese General Appearance ED: well developed and NAD Nutritional Appearance: obese HEENT Reports moist mucous membranes Neck supple and no JVD Back/Spine Back/Spine Narrative: There is tenderness and spasm of the right lumbar paraspinal muscles. There is mild midline tenderness. There is no bony crepitance or. There is also tenderness over the right hip. There is pain with internal and external r otation of the right lower extremity. There is no obvious deformity noted. Lumbar Spine / Lower Back: ROM limited and straight leg raise positive right Neuro oriented x3 and no sensory deficits noted Sensorium / Orientation: alert Motor Exam: strength 5/5 throughout Deep Tendon Reflexes: Rt Patellar (L4): 2+, Lt Patellar (L4): 2+, Rt Ankle (S1): 2+ and Lt Ankle (S1): 2+ Deep Tendon Reflexes Back: Rt Patellar (L4): 2+, Lt Patellar (L4): 2+, Rt Ankle (S1): 2+ and Lt Ankle (S1): 2+ Psych mental status grossly normal Skin no rashes or lesions noted MDM MDM MDM Narrative Medical decision making narrative: Differential diagnosis includes lumbosacral strain, lumbar radiculopathy, sciatica, and degenerative arthritis. X-rays of the lumbar spine will be obtained to assess for degenerative arthritis and spondylolisthesis. Radiography X-Ray: LS SPine, Read by ED Physician, Read by Radiologist, No Fracture, Normal Bony Alignment and DJD Diagnostic Testing: Clinical Impression(s) from Imaging Studies Lumbar Spine X-Ray 04/17/23 09:50 IMPRESSION: Mild multilevel endplate spondylosis. Electronically Signed: Lanie Robert MD at 10:23 EDT , X-rays of the lumbar spine were obtained. There are 3 views. On my independent interpretation, there is no compression fracture or spondylolisthesis. There are mild degenerative changes noted. Radiologist also interpreted the x-rays and agrees. Treatment and Re-Evaluation Narrative: Patient was given injection of morphine here. Patient was advised of his findings. Patient is feeling somewhat better on reevaluation. Patient was given a prescription for a short course of [place]. Patient was instructed to continue his Flexeril and prednisone as prescribed. Patient was instructed to follow-up with his primary care physician in 3 to 5 days for reevaluation. Radha maya understood and was agreeable with the plan. All questions were answered. Discharge Plan Triage Chief Complaint: Back ED Provider: Abdullahi Lacey Dx/Rx/DC Orders Clinical Impression: Sciatica of right side Instructions: ED Sciatica Prescriptions: New hydrocodone-acetaminophen [hydrocodone-acetaminophen] 5-325 mg tablet 1 tab PO Q6H PRN PRN (Reason: Pain) 3 Days Qty: 10 0RF No Action omeprazole 40 mg capsule,delayed release(DR/EC) 40 mg PO DAILY Qty: 90 3RF omeprazole 20 mg capsule,delayed release(DR/EC) 20 mg PO DAILY Patient Comments: TAKE 1 CAPSULE BY MOUTH DAILY BEFORE BREAKFAST. 1/2 HR BEFORE MEAL. Primary Care Provider: Benigno Benavides Referrals: Benigno Benavides MD [Primary Care Provider] - 3-5 Days Disposition Disposition: Home, Self Care
--- NOTE | 2023-04-17 09:50 | RAD_ITS ---
INDICATION: Injury/Pain -- -- injury a week ago, hx DDD, pain is getting worse and radiating down rt leg EXAMINATION/TECHNIQUE: X-RAY - XR Spine Lumbar 2 or 3 Views COMPARISON: Prior study dated: CT of the abdomen and pelvis dated July 03, 2021 FINDINGS: VERTEBRAE: There is mild lateral endplate spondylosis. Preserved vertebral body height. No fracture. No spondylolisthesis. Preservation of the normal lumbar lordosis. No significant facet arthropathy. DISCS: Disc spaces are maintained. INCLUDED ABDOMEN: Included bowel gas pattern is non-obstructive. RAD/Lumbar Spine 2 or 3 Views IMPRESSION: Mild multilevel endplate spondylosis. Electronically Signed: Lanie Robert MD at 10:23 EDT ,
[2023-04-17] MEDS: Morphine 4 MG/ML Syringe IM (10:01)
== END 2023-04-17 11:10 | disposition home or self-care (01) ==
PROVIDERS: Emergency Provider Emergency Medicine; PCP Family Medicine; Visit Provider Emergency Medicine
DX: M54.31 Sciatica, right side (principal); E66.9 Obesity, unspecified
CPT/HCPCS: 72100; 96372; 99282

== ENCOUNTER → 2023-06-06 | Outpatient (CLI) | payer BC, SELFPAY ==
[2023-06-06 08:20] LABS: Erythrocyte Sedimentation Rate 4 mm/hr (0-20)
[2023-06-06 08:23] LABS: Absolute Lymphocyte Count 1.95 X10^3/uL (0.83-4.51); Absolute Neutrophil Count 4.8 X10^3/uL (2.0-7.7); Basophil# 0.06 X10^3/uL; Basophil% 0.8 % (0-1); Eosinophil# 0.31 X10^3/uL; Hematocrit 45.3 % (40-54); Hemoglobin 14.7 g/dL (13.0-16.5); Lymphocyte # 1.95 X10^3/ul (0.83-4.51); Lymphocyte % 24.9 % (19-41); Mean Corp Hgb Conc 32.5 g/dL (32-36); Mean Corpuscular Hgb 28.1 pg (27.0-32.0); Mean Corpuscular Volume 86.6 fL (80-94); Mean Platelet Vol. 10.8 fl (6.2-12.0); Monocyte# 0.68 X10^3/uL; Monocyte% 8.7 % (0-10); NRBC Flagged by Analyzer 0 % (0-5); Neutrophil % 61.3 % (47-70); Platelet Count 263 K/mm3 (150-450); RBC Distribution Width CV 11.7 % (11.6-14.6); Red Blood Count 5.23 M/mm3 (4.6-6.2); White Blood Count 7.8 K/mm3 (4.4-11.0)
[2023-06-06 08:45] LABS: ALB/GLOB Ratio 0.8 RATIO (0.9-2.4); AST(SGOT) 14 U/L (15-37); Alanine Aminotransfer ALT/SGPT 29 U/L (16-61); Albumin, Serum 3.5 g/dL (3.2-5.0); Alkaline Phosphatase 113 U/L (45-117); Anion Gap 4 (5-15); BUN 13 mg/dL (7-18); BUN/Creat Ratio 13.9 RATIO (10-20); CRP 4.01 mg/L (0.0-3.0); Calcium,Total 8.9 mg/dL (8.5-10.1); Chloride 110 mmol/L (98-107); Creatinine, Serum 0.93 mg/dL (0.70-1.30); EST Glomerular Filtration Rate 94 mL/min (>60); Est Glom Filt Rate - Afr Amer 114 mL/min (>60); Globulin 4.2 g/dL (2.2-4.2); Glucose 95 mg/dL (74-106); Potassium 4.1 mmol/L (3.5-5.1); Protein, Total 7.7 g/dL (6.4-8.2); Sodium Level 141 mmol/L (136-145)
[2023-06-11 22:06] LABS: Calprotectin, Stool 152 ug/g (0-120)
== END | disposition home or self-care (01) ==
LOC: LAB 07:40
PROVIDERS: PCP Family Medicine; Referring Provider Internal Medicine Gastroenterology; Visit Provider Internal Medicine Gastroenterology
DX: K22.70 Barrett's esophagus without dysplasia (principal); K51.90 Ulcerative colitis, unspecified, without complications
CPT/HCPCS: 36415; 80053; 83630; 83993; 85025; 85652; 86140

== ENCOUNTER 2023-06-21 11:06 | Day surgery (SDC) | payer BC, SELFPAY ==
--- NOTE | 2023-06-21 | IMM_PTH ---
PATIENT: JD WALLIS LOC: EN U#:[id number] AGE/SX: 43/M ROOM: RE06/21/[address]: Dr. Candelario Sawyer DO : 1980 BED: DIS: 06/21/2023 SPEC #: [id number] RECD: 06/23/23 14:07 STATUS: SANIA REDarrius #: [id number] KRISTY: 06/21/23 00:[address]: Candelario Sawyer DEPT: IMMUNOHISTOCHEMISTRY RECD BY: Ana Petersen ENTERED: 06/23/23 14:07 SP TYPE: IMMUNO OTHR DR: Dr. Benigno Benavides MD Tissues: Esophagus, NOS Procedures: P53 (initial) KI-67 (add) MOC-31 (add) PHYSICIAN & INSTITUTION [place] [id number] SPECIMEN INFORMATION: Tissue Source: Distal esophagus Clinical Info: Ulcerative colitis, GERD, Gaona's esophagus Specimen Number: [id number] CPT code: 13443, 03818 x2 METHODOLOGY: Deparaffinized sections of prefer/formalin-fixed tissue or PAP/DQ stained slides are incubated with monoclonal/polyclonal antibodies/oligonucleotide probes. Localization is made via biotin free immunoperoxidase method. Appropriate controls are performed and reacted as expected. Results on target cell population are indicated in the following table: RESULTS: ANTIBODY / CLONE RESULT P53 (DO-7) positive, wild type pattern Ki-67 (30-9) positive, low MOC-31 (4561) positive These tests were developed and their performance characteristics determined by [facility]. They may not have been cleared or approved by the U.S. Food and Drug Administration. The FDA has determined that such clearance or approval is not necessary. The above immunohistochemical/dualISH markers are ordered and reviewed by the Pathologist. INTERPRETATION: Distal esophagus, biopsy: No evidence of dysplasia. AM:aida 06/24/2023
--- NOTE | 2023-06-21 | ESO_PTH ---
PATIENT: JD WALLIS LOC: EN U#:[id number] AGE/SX: 43/M ROOM: RE06/21/[address]: Dr. Candelario Sawyer DO : 1980 BED: DIS: 06/21/2023 SPEC #: [id number] RECD: 06/21/23 15:12 STATUS: SANIA RENATE #: [id number] KRISTY: 06/21/23 00:[address]: Candelario Sawyer DEPT: SURGICAL PATHOLOGY RECD BY: Guille Garcia ENTERED: 06/22/23 10:17 SP TYPE: LYDIA MELGAR DR: Dr. Benigno Benavides MD Tissues: Esophagus, NOS Procedures: Special Stain Group II Surgery Specimen Level IV Alcian Blue/PAS (control) HEADER OPERATION: EGD with biopsies PRE-OP DIAGNOSIS: Ulcerative colitis, GERD, Gaona's esophagus TISSUE SUBMITTED: Distal esophagus biopsy MICROSCOPIC DIAGNOSIS Distal esophagus, biopsy: Gastroesophageal junctional mucosa with mild chronic and focal acute inflammation. 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 No evidence of dysplasia. See comment. AM:aida 06/23/2023 COMMENT Alcian blue/PAS stain with matched control supports the above diagnosis. Immunohistochemistry ([id number]) for P53 and Ki-67 will be performed and results will be reported separately. MICROSCOPIC DESCRIPTION Slides are reviewed. GROSS DESCRIPTION Received in fixative is one container labeled with the patient's name and designated distal esophagus biopsy. The specimen consists of multiple irregular fragments of light gupta soft tissue that in aggregate measure 1.5 x 0.5 x 0.1 cm. The specimen is totally submitted in one cassette. / SJ:aida 06/22/2023 TC:2 CPT: 40147, 74230
[2023-06-21] MEDS: Lactated Ringers 1,000 ML 15 ML IV (11:26)
[2023-06-21 11:27] VITALS: BP 135/87; PULSE 106; RESP 18; TEMP 36.4; O2SAT 100; BMI 35.3
--- NOTE | 2023-06-21 12:07 | PCM.HP.BLA ---
History and Physical Date of Admission: 06/21/23 IGNACIO WALLIS, is a 41 M who presents to the office today for Follow up. Ignacio established with this clinic 01.29.22 with a history of UC diagnosed in 2010; previously established with [facility] in [place]. Symptoms at diagnosis included varying number and consistency of stools with bloody diarrhea and abdominal pain; colonoscopy performed 02.01.11 finding left UC with several small ulcers, confirmed with Biopsy. Previously utilized Balsalazide 750mg 3tabs BID, this ended many years ago as he was not having symptoms. Reports one flare in the last two years. Denies significant symptoms at this time. Reports blood in stools periodically; stools once a day and feels they are normal to him, poor food choices cause loose stools. GERD history with periodic flares, r/t food intake, requiring use of omeprazole Last colonoscopy approximately 2015 unsure of results, but feels everything was ok/without progression of UC. History of perirectal abscess surgically drained 06.30.21 and 07.02.21. PMH eczema, GERD (omeprazole), hyperlipidemia. FH grandfather colon cancer; grandmother esophageal cancer, stroke, heart disease. EGD and colonoscopy 05.06.22. EGD noted esophageal changes consistent with short-segment Gaona?s esophagus; small hiatal hernia; erythematous mucosa of stomach; duodenitis. Colonoscopy found Gonzalez Score 1 UC; congested mucosa of TI. Stool Studies C.Diff, enteric pathogens WNL. Biochemical workup CEA, CRP, ESR ordered, not drawn. Plan LV 01.29.22: UC ? colonoscopy and biochemical workup. Family history cancer ? egd GERD ? egd Reports he is doing well since LV, denies issues with abdominal pain or frequent stooling. Had some reflux following endoscopy but with omeprazole he is doing well. When he eats too quickly there is a strange sensation when swallowing. ROS Const Constitutional: No anorexia, fatigue, fever(s), weight change or sleep problems Eyes Eyes: No change in vision ENT ENT: No abnormal hearing, difficulty swallowing, mouth lesions, tongue swelling or throat swelling Resp Respiratory: No cough or shortness of breath Cardio Cardiology: No chest pain at rest, chest pain with exertion, shortness of breath or dyspnea on exertion Gastro GI: No difficulty swallowing Genitourinary Male: No difficulty urinating or burning urination Musc Musculoskeletal: No joint pain, joint swelling, muscle weakness or decreased muscle mass Skin Skin: No hair loss in leg, yellowing of the eye, itchy eyes, rash, skin ulcer or skin swelling Neuro Neurology: No abnormal hearing, abnormal movements, confusion, unsteady gait/balance or memory loss Psych Psychiatric: No anxiety, No confusion and No memory loss Endo Endocrine: No fatigue or weight change Aller/Imm Allergy/Immunologic: No itchy eyes, throat swelling or tongue swelling Semaj/Lymp Hematologic/Lymphatic: No easy bleeding, easy bruising or enlarged lymph nodes Exam Const General: cooperative and comfortable Nutritional Appearance: average body habitus and well nourished HENMT Head: normal to inspection Ears: hearing grossly normal bilaterally Nose: external nose normal Face and sinus: normal facial exam Mouth: oral mucosae normal Throat: posterior oropharynx normal Eyes General: appearance normal, both eyes and all related structures Neck Neck: normal visual inspection Chest Chest palpation & inspection: normal inspection of the chest and normal palpation of entire chest wall Resp Effort & Inspection: normal respiratory effort Auscultation: Bilateral: Clear to Auscultation Cardio Palpation: normal PMI Rate: regular rate Rhythm: regular rhythm GI Inspection: normal to inspection Auscultation: normal bowel sounds Percussion: normal to percussion Palpation: no hepatosplenomegaly Skin General: no rashes or lesions noted Neuro General: patient alert Extrem General: normal to inspection Psych Affect: normal affect Quality Reporting Tobacco Screening ([facility] 138) Smoking Status: Never smoker Assessment and Plan Assessment and Plan (1) Ulcerative colitis: Status: Chronic Plan: Left-sided ulcerative colitis. The biopsies from could be had shown mild colitis without dysplasia. These were biopsies from the sigmoid colon and ascending colon. There was no inflammation seen in the rectum, transverse colon, ascending colon or cecum. The scope along with his pre-existing colonoscopy which was 5 years ago. I am recommending probiotic therapy. ' Studies for maintain remission mild ulcerative colitis with probiotics in particular VSL therapy. We had talked about possibly doing mesalamine based therapy. However he does not have any diarrhea, bleeding, abdominal pain, cramping. Therefore at this time we elected against medical therapy and to just use fiber in probiotic. (2) GERD (gastroesophageal reflux disease): Status: Chronic Plan: Gastroesophageal reflux disease he did have LA grade a reflux esophagitis. I think this is secondary to dilated lower esophageal sphincter and a hiatal hernia. (3) Barretts esophagus: Status: Acute Plan: He was discovered to have short segment Gaona's esophagus. We will put him on omeprazole 40 mg a day and we will get a repeat upper endoscopy in approximately1 1/2 to 2 years. I have examined the patient and the H&P has been reviewed. There are no clinical changes since date of exam.
[2023-06-21 12:28] VITALS: BP 135/87; BP 142/87; PULSE 89; RESP 14; TEMP 36.7; O2SAT 98
[2023-06-21 12:30] VITALS: BP 135/87; BP 138/85; PULSE 84; RESP 18; O2SAT 94
[2023-06-21 12:35] VITALS: BP 135/87; BP 144/89; PULSE 85; RESP 18; O2SAT 98
--- NOTE | 2023-06-21 12:35 | OP.EGD_ITS ---
Patient Name: Ignacio Ibanez Procedure Date: 06/21/2023 11:36 AM Date of : 1980 Age: 43 Procedure: Upper GI endoscopy Indications: Follow-up of Gaona's esophagus Providers: Candelario Sawyer DO Referring MD: Candelario Sawyer DO Medicines: Monitored Anesthesia Care Patient Profile: This is a 43 year old male. Refer to note in patient chart for documentation of history and physical. Patient has symptoms of chronic heartburn. Complications: No immediate complications. Procedure: Pre-Anesthesia Assessment: - Prior to the procedure, a History and Physical was performed, and patient medications and allergies were reviewed. The patient is competent. The risks and benefits of the procedure and the sedation options and risks were discussed with the patient. All questions were answered and informed consent was obtained. Patient identification and proposed procedure were verified by the physician in the pre-procedure area. Mental Status Examination: alert and oriented. Airway Examination: normal oropharyngeal airway and neck mobility. Respiratory Examination: clear to auscultation. CV Examination: normal. Prophylactic Antibiotics: The patient does not require prophylactic antibiotics. Prior Anticoagulants: The patient has taken no anticoagulant or antiplatelet agents. After reviewing the risks and benefits, the patient was deemed in satisfactory condition to undergo the procedure. The anesthesia plan was to use monitored anesthesia care (MAC). Immediately prior to administration of medications, the patient was re-assessed for adequacy to receive sedatives. The heart rate, respiratory rate, oxygen saturations, blood pressure, adequacy of pulmonary ventilation, and response to care were monitored throughout the procedure. The physical status of the patient was re-assessed after the procedure. After obtaining informed consent, the endoscope was passed under direct vision. Throughout the procedure, the patient's blood pressure, pulse, and oxygen saturations were monitored continuously. The gastroscope was introduced through the mouth, and advanced to the second part of duodenum. The upper GI endoscopy was accomplished without difficulty. The patient tolerated the procedure well. Scope In: 12:17:40 PM Scope Out: 12:22:44 PM Total Procedure Duration Time 0 hours 5 minutes 4 seconds Findings: There were esophageal mucosal changes secondary to established short-segment Gaona's disease present in the lower third of the esophagus. The maximum longitudinal extent of these mucosal changes was 3 cm in length. Mucosa was biopsied with a cold forceps for histology in a targeted manner at intervals of 1 cm in the lower third of the esophagus. One specimen bottle was sent to pathology. Verification of patient identification for the specimen was done. Estimated blood loss was minimal. A small hiatal hernia was present. No other significant abnormalities were identified in a careful examination of the stomach. The second portion of the duodenum was normal. Impression: - Esophageal mucosal changes secondary to established short-segment Gaona's disease. Biopsied. - Small hiatal hernia. - Normal second portion of the duodenum. Recommendation: - Discharge patient to home. - Resume previous diet. - Continue present medications. - Await pathology results. - Repeat upper endoscopy. Procedure Code(s): --- Professional --- 37587, Esophagogastroduodenoscopy, flexible, transoral; with biopsy, single or multiple CPT copyright 2021 [employer]. All rights reserved. The codes documented in this report are preliminary and upon gas refrigerator servicer review may be revised to meet current compliance requirements. Candelario Sawyer DO 06/21/2023 12:34:40 PM This report has been signed electronically. Number of Addenda: 0 Note Initiated On: 06/21/2023 11:36 AM
--- NOTE | 2023-06-21 12:35 | OP.CCLET_ITS ---
06/21/2023 Benigno Benavides Re : Upper GI endoscopy procedure for Ignacio Ibanez Dear Kennedy This procedure was performed on Wednesday, June 21, 2023. My impressions and recommendations are as follows: Impressions : - Esophageal mucosal changes secondary to established short-segment Gaona's disease. Biopsied. - Small hiatal hernia. - Normal second portion of the duodenum. Recommendations : - Discharge patient to home. - Resume previous diet. - Continue present medications. - Await pathology results. - Repeat upper endoscopy. My findings are described in the full procedure note, which is enclosed. If I can be of further assistance, please feel free to contact me at . Sincerely, Candelario Sawyer, 06/21/2023 12:34:40 PM This report has been signed electronically.
[2023-06-21 12:39] VITALS: BP 135/87; BP 136/93; PULSE 79; RESP 18; TEMP 36.7; O2SAT 99
[2023-06-21 12:55] VITALS: BP 135/87
== END 2023-06-21 12:58 | disposition home or self-care (01) ==
LOC: EN 11:09 → AC 11:10
PROVIDERS: PCP Family Medicine; Referring Provider Internal Medicine Gastroenterology; Visit Provider Internal Medicine Gastroenterology
PROC: 0DJ08ZZ Inspection of Upper Intestinal Tract, Via Natural or Artificial Opening Endoscopic (ICD-10-PCS; CPT 43235; principal; 2023-06-21 11:55)
DX: K22.70 Barrett's esophagus without dysplasia (principal); K51.50 Left sided colitis without complications; K44.9 Diaphragmatic hernia without obstruction or gangrene; K21.9 Gastro-esophageal reflux disease without esophagitis; Z79.899 Other long term (current) drug therapy; Z87.891 Personal history of nicotine dependence
CPT/HCPCS: 43239; 81002; 88305; 88313; 88341; 88342; J7120; J2405

== ENCOUNTER → 2023-11-03 | Outpatient (CLI) | payer OTHER, SELFPAY ==
--- OUTSIDE RECORDS SUMMARY | 2023-11-03 08:37 | XMS RPT_ITS | CCD ---
Author Name Unknown Address [address] [place] [address] Organization [facility] Care Team Providers Care Channel Executive Name Role Phone Riana Benavides MD Primary Care Provider [phone] RIANA BENAVIDES Primary Care Unavailable MARK SYED Attending Unavailable RIANA BENAVIDES Primary Care Unavailable Enedelia DAVENPORT Referring Unavailable RIANA BENAVIDES Primary Care Unavailable Enedelia DAVENPORT Attending Unavailable RITA MALLOY Attending Unavailable RIANA BENAVIDES Primary Care Unavailable RIANA BENAVIDES Referring Unavailable RIANA BENAVIDES Primary Care Unavailable RIANA BENAVIDES Attending Unavailable RIANA BENAVIDES Primary Care Unavailable Riana Benavides MD Primary Care Provider LISSETT NUR Attending Unavailable Enedelia DAVENPORT Referring Unavailable RIANA BENAVIDES Primary Care Unavailable Medications Current Medications Medication Drug Class(es) Dates Sig (Normalized) Sig (Original) methylPREDNISolone (1 source) Corticosteroid Start: 04-14-2023 End: 04-20-2023 methylPREDNISolone (MEDROL, WENDI,) 4 mg Dose-Pack Indications: Lumbar spine pain Follow dosing instructions, take with food. 21 tablet 0 04/14/2023 04/20/2023 Active Completed/Discontinued Medications Medication Drug Class(es) Dates Sig (Normalized) Sig (Original) cyclobenzaprine hydrochloride 10 mg oral tablet (6 sources) Muscle Relaxant Start: 04-14-2023 take 1 tablet by mouth three times daily as needed cyclobenzaprine (FLEXERIL) 10 mg tablet Indications: Lumbar spine pain Take 1 tablet by mouth three times daily as needed. 30 tablet 0 04/14/2023 Active Problems Active Problems Problem Classification Problem Date Documented Date Episodic/Chronic Allergic reactions (13 sources) Atopic dermatitis; Translations: [Intrinsic (allergic) eczema] Onset: 05-24-2018 05-24-2018 Chronic Anxiety disorders (4 sources) Mixed anxiety and depressive disorder; Translations: [Other specified anxiety disorders] Onset: 07-09-2022 Chronic Disorders of lipid metabolism (1 source) Mixed hyperlipidemia; Translations: [Mixed hyperlipidemia] 10-14-2023 Chronic Esophageal disorders (4 sources) Gastroesophageal reflux disease without esophagitis; Translations: [Gastro-esophageal reflux disease without esophagitis] Onset: 07-09-2022 Chronic Other aftercare (1 source) Drug therapy finding; Translations: [Other superintendent container terminal (current) drug therapy] 10-14-2023 Episodic Other connective tissue disease (1 source) Pain in right lower limb; Translations: [Pain in right leg] 04-27-2023 Episodic Other connective tissue disease (1 source) Pain in right leg; Translations: [Right leg pain] Onset: 04-27-2023 Episodic Other liver diseases (2 sources) Alkaline phosphatase raised; Translations: [Abnormal levels of other serum enzymes] Episodic Other nutritional; endocrine; and metabolic disorders (2 sources) Obesity; Translations: [Obesity, unspecified] 10-15-2023 Chronic Other upper respiratory infections (1 source) Viral upper respiratory tract infection; Translations: [Acute upper respiratory infection, unspecified] Episodic Regional enteritis and ulcerative colitis (16 sources) Ulcerative colitis; Translations: [Ulcerative colitis, unspecified, without complications] Onset: 05-24-2018 Chronic Spondylosis; intervertebral disc disorders; other back problems (16 sources) Degeneration of cervical intervertebral disc; Translations: [Other cervical disc degeneration, unspecified cervical region] Onset: 01-08-2019 01-08-2019 Chronic Spondylosis; intervertebral disc disorders; other back problems (17 sources) Neck pain; Translations: [Cervicalgia] Onset: 01-08-2019 01-08-2019 Episodic Unclassified (1 source) Lumbar spine pain; Translations: [Lumbar spine pain] Onset: 04-14-2023 Past or Other Problems Problem Classification Problem Date Documented Da te Episodic/Chronic Other screening for suspected conditions (not mental disorders or infectious disease) (2 sources) Patient encounter status; Translations: [Encounter for screening for lipoid disorders] Onset: 07-09-2022 Episodic Results Test Name Value Interpretation Reference Range Facil ity Vital Signs Date Time Vital Sign Value Performing Clinician Faci lity 10-28-2023 13:00-0500 Body weight 125.65 kg Lissett Nur PT [facility] 10-14-2023 14:54-0500 Body weight 125.65 kg NA Davenport PA-C Work Phone: [facility] 10-14-2023 14:54-0500 Diastolic blood pressure 76 mm[Hg] NA Davenport PA-C Work Phone: [facility] 10-14-2023 14:54-0500 Heart rate 91 /min NA Davenport PA-C Work Phone: [facility] 10-14-2023 14:54-0500 Respiratory rate 16 /min NA Davenport PA-C Work Phone: [facility] 10-14-2023 14:54-0500 SaO2% (BldA) [Mass fraction] 98 % NA Davenport PA-C Work Phone: [facility] 10-14-2023 14:54-0500 Systolic blood pressure 134 mm[Hg] NA Davenport PA-C Work Phone: [facility] 04-27-2023 13:14-0400 Body weight 123.83 kg Rita Malloy DISC RULER OPERATOR.ACCOUNT GENERAL MANAGER Work Phone: [facility] 04-27-2023 13:14-0400 Diastolic blood pressure 86 mm[Hg] Rita Mellissa DISC RULER OPERATOR.ACCOUNT GENERAL MANAGER Work Phone: [facility] 04-27-2023 13:14-0400 Heart rate 104 /min Rita Mellissa DISC RULER OPERATOR.ACCOUNT GENERAL MANAGER Work Phone: [facility] 04-27-2023 13:14-0400 Respiratory rate 16 /min Rita Malloy DISC RULER OPERATOR.ACCOUNT GENERAL MANAGER Work Phone: [facility] 04-27-2023 13:14-0400 Systolic blood pressure 140 mm[Hg] Rita Malloy DISC RULER OPERATOR.ACCOUNT GENERAL MANAGER Work Phone: [facility] 04-14-2023 16:44-0400 Body weight 123.47 kg Riana Benavides MD Work Phone: [facility] 04-14-2023 16:44-0400 Diastolic blood pressure 86 mm[Hg] Riana Benavides MD Work Phone: [facility] 04-14-2023 16:44-0400 Heart rate 72 /min Riana Benavides MD Work Phone: [facility] 04-14-2023 16:44-0400 Respiratory rate 16 /min Riana Benavides MD Work Phone: [facility] 04-14-2023 16:44-0400 SaO2% (BldA) [Mass fraction] 98 % Riana Benavides MD Work Phone: [facility] 04-14-2023 16:44-0400 Systolic blood pressure 138 mm[Hg] Riana Benavides MD Work Phone: [facility] 07-09-2022 14:20-0500 Body height 188 cm NA Davenport PA-C Work Phone: [facility] 07-09-2022 14:20-0500 Body weight 123.02 kg NA Davenport PA-C Work Phone: [facility] 07-09-2022 14:20-0500 Diastolic blood pressure 82 mm[Hg] NA Davenport PA-C Work Phone: [facility] 07-09-2022 14:20-0500 Heart rate 77 /min NA Davenport PA-C Work Phone: [facility] 07-09-2022 14:20-0500 Respiratory rate 18 /min NA Davenport PA-C Work Phone: [facility] 07-09-2022 14:20-0500 SaO2% (BldA) [Mass fraction] 97 % NA Davenport PA-C Work Phone: [facility] 07-09-2022 14:20-0500 Systolic blood pressure 130 mm[Hg] NA Davenport PA-C Work Phone: [facility] Encounters Encounter Date Encounter Type Care Provider Facility Start: 10-28-2023 End: 10-28-2023 ambulatory LISSETT NUR Facility:[id number] Start: 10-28-2023 End: 10-28-2023 ambulatory Lissett [facility]ur PT [facility] [place] Procedures Date Procedure Procedure Detail Performing Clinician Start: 07-09-2022 Lipid 1996 panel - S natalia or Plasma NA Davenport PA-C Work Phone: Start: 11-23-2021 Adult depression screening assessment NA Davenport PA-C Work Phone: Plan of Treatment Date Care Activity Detail Author Start: 2041 HEPATITIS B (1 of 3 - Risk 3-dose series) HEPATITIS B (1 of 3 - Risk 3-dose series) [facility] Start: 2041 Hepatitis B Vaccine (1 of 3 - Risk 3-dose series) Hepatitis B Vaccine (1 of 3 - Risk 3-dose series) [facility] Start: 05-19-2029 Urine microalbumin profile [facility] Start: 07-09-2027 Lipid panel Lipid Screening [facility] Start: 07-09-2027 LIPID SCREEN LIPID SCREEN [facility] Start: 10-16-2026 LIPID SCREEN LIPID SCREEN [facility] Start: 10-14-2024 Covid-19 Vaccine ( season) Covid-19 Vaccine ( season) [facility] Immunizations Immunization Date Immunization Notes Care Provider Lila yip 05-22-2021 influenza, injectabl e, quadrivalent, contains preservative NA Davenport PA-C Work Phone: [facility] Work Phone: 05-22-2021 influenza virus vaccine, unspecified formulation NA Davenport PA-C Work Phone: [facility] 05-20-2021 influenza, seasonal, injectable, preservative free NA Davenport PA-C Work Phone: [facility] 01-29-2021 COVID-19 vaccine, ag e 12+ yr (PFIZER-BIONTECH - PURPLE TOP) NA Davenport PA-C Work Phone: [facility] Work Phone: 01-08-2021 COVID-19 vaccine, ag e 12+ yr (PFIZER-BIONTECH - PURPLE TOP) NA Davenport PA-C Work Phone: [facility] Work Phone: 05-15-2019 influenza, injectabl e, quadrivalent, preservative free NA Davenport PA-C Work Phone: [facility] 06-17-2015 influenza, seasonal, injectable, preservative free NA Davenport PA-C Work Phone: [facility] 06-10-2014 influenza, seasonal, injectable NA Davenport PA-C Work Phone: [facility] Payers Date Payer Category Payer Private Health Insurance [facility] CHOICE PLUS [id number] 2023-Present [phone] [address] [address] [place] [address] HMO [id number] 2023 Unknown [id number] 2021 Unknown [employer] PPO OOS [id number] 2021-Present [phone] [address] [place] [address] PPO [id number] 2021 Unknown [employer] C[employer] PPO OOS [id number] 2021-Present [phone] [id number] [place] [address] PPO [id number] 2021 Unknown [id number] Social History Date Type Detail Facility Start: 05-24-2018 End: 07-09-2022 Tobacco smoking status NHIS Ex-smoker [facility] Start: 08-22-1999 End: 08-22-2007 History of tobacco use Current smoker [facility] Start: 05-24-2018 End: 04-14-2023 Cigarettes smoked current (pack per day) - Reported 0.5 [facility] Start: 05-24-2018 End: 07-09-2022 Tobacco use and exposure Smokeless tobacco non-user [facility] Start: 10-16-2021 End: 10-14-2023 Alcohol intake Current drinker of alcohol (finding) [facility] Start: 11-24-2021 History SDOH Alcohol Frequency 3 [facility] Start: 11-24-2021 End: 07-09-2022 History SDOH Alcohol Std Drinks 2 [facility] Start: 05-24-2018 History SDOH Alcohol Comment socially [facility] Start: 11-24-2021 History SDOH Social Connections Phone 4 [facility] Start: 11-24-2021 End: 07-09-2022 History SDOH Social Connections Membership 1 [facility] Start: 11-24-2021 History SDOH Physica l Activity MPS 6 [facility] Start: 1980 Sex Assigned At Male C [facility] Start: 09-16-2021 End: 07-09-2022 Exposure to SARS-CoV-2 (event) Not sure [facility] Start: 08-22-1999 End: 08-22-2007 History of tobacco use Cigarette Smoker [facility] Start: 04-14-2023 End: 10-14-2023 Social connection and isolation panel [facility] In a typical week, h ow many times do you talk on the telephone with family, friends, or neighbors? Patient refused [facility] Are you now , , , , never or living with a partner? Refused [facility] Do you feel stress - tense, restless, nervous, or anxious, or unable to sleep at night because your mind is troubled all the time - these days [OSQ] Not at all [facility] (I/We) worried yuly er (my/our) food would run out before (I/we) got money to buy more. DK or Refused [facility] In the past 12 month s, was there a time when you were not able to pay the mortgage or rent on time? No [facility] Start: 03-08-2021 Gender identity Identifies as male gender (finding) [facility] Start: 03-08-2021 Sexual orientation Heterosexual (holland kowalski) [facility] Clinical Notes 11-27-2021 to 10-28-2023 Lissett Nur, PT - 10/28/2023 3:04 PM Lissett Rivas PT - 10/28/2023 3:02 PM ESTTelephone Encounter - Marlin Pino, MEAT COUNTER WORKER - 10/20/2023 2:16 PM ESTPatient InstructionsPatient Instructions Note Date & Type Note Facility 10-28-2023 Note HNO ID: [id number] Author: LISSETT NUR PT Service: ? Author Type: Physical Therapist Type: Progress Notes Filed: 10/28/2023 15:08 Note Text: Episode Visit Count: 1 Therapist That Will Accept/Oversee The Plan Of Care: Lissett Nur Start of Care Date: 10/28/23 Onset Date: 03/29/23 Patient Identified by Name and Date of : Yes REHABILITATION AND SPORTS THERAPY PHYSICAL THERAPY EVALUATION PLAN OF CARE: Assessment: Ignacio Wallis presents with chief complaint of sacral radic (S1-2) that interferes with (lessened swing with golfing, avoiding body weight resisted exer; stopped running) . He presents with impairments in flexibility, independence in exercise, overall function, patient reported outcome measures, posture, strength, and symptom management. PROMIS? (Patient-Reported Outcomes Measurement Information System) scores were reviewed and identified as a rehabilitation concern. Prognosis for therapy is Good due to: good overall health status . He will benefit from skilled therapy services to meet the goals established for this plan of care as noted below. Goals for Episode of Care: created on 10/28/23 through 12/27/23 Patient will decrease pain to 0/10 with exer/sport to allow patient to improve qual of life. Restore pain-free lumbar ROM to full to allow for return to golf w/o restriction Stand / Walk without pain/symptoms. Patient will be able to correct postural deviations independently in order to allow for normal mechanics. Patient Goals: reduced pain Planned Interventions, Frequency, and Duration: Current Frequency: 2x/week (1-2) Duration: 8 weeks Total Number of Visits Planned: 12 Planned Treatment Interventions: Therapeutic exercise (35463), Neuromuscular re-education (92739), Manual therapy (21715), Therapeutic activities (07195), Self-retirement management (78094), Patient/Family/Caregiver Education, Body Mechanics Training, Functional training, General Conditioning PLAN FOR NEXT VISIT: assess for stretching bias; assess musculature for tone redction needs, then advance body weight resisted strengthening with cues to avoid kinesephobia Patient demonstrates good understanding of plan of care and treatment. The above goals and plan of care were discussed and agreed upon by patient/family. SUBJECTIVE: Pt. states that he's having pain and numbness radiating down the R LE down the back of thigh to the plantar aspect of the foot; he had injection of L4-5 (L), L5-S1 (R) with some improvements in the leg, but his back is feeling tight and uncomfortable; he's attempting to avoid medication Patient Goals: reduced pain Functional Limitations: (lessened swing with golfing, avoiding body weight resisted exer; stopped running) Prior Level of Function: (golfing w/o restriction, body weight resisted exer + dumbells, running 1.5 miles of a 3 mile total) Relevant History Past Relevant Medical Conditions: (ulcerative colitis, eczema, DDD) Past Relevant Surgical Conditions: (egd varicies, parirectal/ischiorectal abscesses, cystectomy (eyelid)) 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 5 points is clinically meaningfully difference Percentiles provide an indication of how the patient's score ranks in relation to the general population. Higher percentile rankings indicate better function/quality of life. 50th percentile is the average of the general population and indicates half of respondents had a worse score. OBJECTIVE MEASURES WITH LEVEL OF FUNCTION: Posture / Alignment Posture: (slight posterior shear of thorax in standing; lumbar lordosis - mild - in plank -- corrected with visual and palpation cues) Reflexes - Lower Extremity R Patellar: 2+ R Achilles: Absent L Patellar: 2+ L Achilles: 2+ Sensation - Lumbar Sensation: (reduced on R to light touch S1-2, otherwise equal and intact) Lumbar Spine AROM Lumbar Flexion: (2 in finger to floor) Lumbar Extension: Minimal limitation Lumbar R Side Marbury: Normal Lumbar L Side Marbury: Normal LE Strength R Hip Flexion (L2): 5/5 R Knee Extension (L3): 5/5 R Knee Flexion: 5/5 R Ankle Dorsiflexion (L4): 4+/5 R Ankle Plantar Flexion: 5/5 R Great Toes Extension (L5, S1): 5/5 Education: Education Learning Preferences: Performance, Printed Materials Barriers: None Learning/educational needs: Home exercise program Education Provided: (HEP) TREATMENT: PT Treatment I (more content not included)... [facility] 10-28-2023 History of Present illness Narrative Program_ID:[id number] Access Code: [email or web address] URL: [email or web address] Date: 10-28-2023 Prepared By: LISSETT NUR Program Notes Exercises - Standard Plank - 1 x daily - 5 x weekly - 3 sets - reps Episode Visit Count: 1 Therapist That Will Accept/Oversee The Plan Of Care: Lissett Nur Start of Care Date: 10/28/23 Onset Date: 03/29/23 Patient Identified by Name and Date of : Yes REHABILITATION AND SPORTS THERAPY PHYSICAL THERAPY EVALUATION PLAN OF CARE: Assessment: Ignacio Wallis presents with chief complaint of sacral radic (S1-2) that interferes with (lessened swing with golfing, avoiding body weight resisted exer; stopped running) . He presents with impairments in flexibility, independence in exercise, overall function, patient reported outcome measures, posture, strength, and symptom management. PROMIS (Patient-Reported Outcomes Measurement Information System) scores were reviewed and identified as a rehabilitation concern. Prognosis for therapy is Good due to: good overall health status . He will benefit from skilled therapy services to meet the goals established for this plan of care as noted below. Goals for Episode of Care: created on 10/28/23 through 12/27/23 Patient will decrease pain to 0/10 with exer/sport to allow patient to improve qual of life. Restore pain-free lumbar ROM to full to allow for return to golf w/o restriction Stand / Walk without pain/symptoms. Patient will be able to correct postural deviations independently in order to allow for normal mechanics. Patient Goals: reduced pain Planned Interventions, Frequency, and Duration: Current Frequency: 2x/week (1-2) Duration: 8 weeks Total Number of Visits Planned: 12 Planned Treatment Interventions: Therapeutic exercise (26584), Neuromuscular re-education (33632), Manual therapy (59222), Therapeutic activities (67586), Self-retirement management (19969), Patient/Family/Caregiver Education, Body Mechanics Training, Functional training, General Conditioning PLAN FOR NEXT VISIT: assess for stretching bias; assess musculature for tone redction needs, then advance body weight resisted strengthening with cues to avoid kinesephobia Patient demonstrates good understanding of plan of care and treatment. The above goals and plan of care were discussed and agreed upon by patient/family. SUBJECTIVE: Pt. states that he's having pain and numbness radiating down the R LE down the back of thigh to the plantar aspect of the foot; he had injection of L4-5 (L), L5-S1 (R) with some improvements in the leg, but his back is feeling tight and uncomfortable; he's attempting to avoid medication Patient Goals: reduced pain Functional Limitations: (lessened swing with golfing, avoiding body weight resisted exer; stopped running) Prior Level of Function: (golfing w/o restriction, body weight resisted exer + dumbells, running 1.5 miles of a 3 mile total) Relevant History Past Relevant Medical Conditions: (ulcerative colitis, eczema, DDD) Past Relevant Surgical Conditions: (egd varicies, parirectal/ischiorectal abscesses, cystectomy (eyelid)) 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 5 points is clinically meaningfully difference Percentiles provide an indication of how the patient's score ranks in relation to the general population. Higher percentile rankings indicate better function/quality of life. 50th percentile is the average of the general population and indicates half of respondents had a worse score. OBJECTIVE MEASURES WITH LEVEL OF FUNCTION: Posture / Alignment Posture: (slight posterior shear of thorax in standing; lumbar lordosis - mild - in plank -- corrected with visual and palpation cues) Reflexes - Lower Extremity R Patellar: 2+ R Achilles: Absent L Patellar: 2+ L Achilles: 2+ Sensation - Lumbar Sensation: (reduced on R to light touch S1-2, otherwise equal and intact) Lumbar Spine AROM Lumbar Flexion: (2 in finger to floor) Lumbar Extension: Minimal limitation Lumbar R Side Marbury: Normal Lumbar L Side Marbury: Normal LE Strength R Hip Flexion (L2): 5/5 R Knee Extension (L3): 5/5 R Knee Flexion: 5/5 R Ankle Dorsiflexion (L4): 4+/5 R Ankle Plantar Flexion: 5/5 R Great Toes Extension (L5, S1): 5/5 Education: Education Learning Preferences: Performance, Printed Materials Barriers: None Learning/educational needs: Home exercise program Education Provided: (HEP) TREATMENT: PT Treatment Interventions: Neuromuscular Re-Education Evaluation Evaluation Neuromuscular Re-Education: 1: post'l edu in standing then progressing to planks to resume previous body weight resisted exer program with education in neurological sensations to avoid kinesephobia in relation to exercise Skilled Intervention: Reviewed and educated patient on additions/changes for home program as noted above with an (*). Patient education as noted. Billing * Evaluation Low Complexity: 1 Unit Neuromuscular Re-Education Treatment Minutes: 13 Skilled Treatment Time Minutes (timed and untimed codes): 13 Total Session Time (minutes): 45 Session Start Time : 1315 Session Stop Time : 1400 Lissett Nur PT documented in this encounter [facility] 10-20-2023 Miscellaneous Notes Images from the original note were not included. Prior authorization approved Payer: [facility] [phone] Your PA request has been approved. Additional information will be provided in the approval communication. (Message 1145) Approval Details Authorized from October 20, 2023 to May 20, 2024 Electronic appeal: Not supported View History Notes Time User Attachment Attachment received from payer. 10/20/2023 1:39 PM [facility], Rx Priorauth In Document Medication Being Authorized semaglutide, weight loss, (WEGOVY) 0.25 mg/0.5 mL pen injector Inject 0.5 mL subcutaneously one time a week for 28 days. Dispense: 2 mL Refills: 0 Start: 10/20/2023 End: 11/17/2023 Class: Normal Diagnoses: Class 2 obesity with body mass index (BMI) of 35.0 to 35.9 in adult, unspecified obesity type, unspecified whether serious comorbidity present Pt notified via [employer]. documented in this encounter [facility] 10-20-2023 Miscellaneous Notes The following approved medication requests have been transmitted electronically. Requested Prescriptions Signed Prescriptions Disp Refills semaglutide, weight loss, (WEGOVY) 0.25 mg/0.5 mL pen injector 2 mL 0 Sig: Inject 0.5 mL subcutaneously one time a week for 28 days. Requires prior auth: not likely to cover. Enedelia Davenport PA-C documented in this encounter [facility] 10-14-2023 Instructions Enedelia Davenport PA-C - 10/14/2023 3:48 PM EST HEALTH MAINTENANCE Routine health maintenance, including regular aerobic exercise, low fat diet, and periodic exams. Your Body mass index is 35.55 kg/m . (Target BMI: 19-25) Pap guidelines: PAP smear yearly or every other year between 20-30, then every 3 years if negative HPV Mammogram yearly starting at age 40. Calcium 1200mg, Vitamin D3 800-2,000 IU and 400mcg folic acid recommended. Recommend sunscreen and regular dental examinations. LABS In the absence of additional risk factors: Thyroid screening every 5 years after age 50 Fasting blood sugar every 3 years after age 45 Fasting cholesterol every five years after age 45 IMMUNIZATIONS Td every 10 years Yearly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 Perirectal abscess 06/2021 Ulcerative colitis (HCC) 2012 PAST SURGICAL HISTORY Procedure Laterality Date COLONOSCOPY GEN ANES 05/06/2022 Dr Sawyer repeat in 2 years EGD W/O BRSH SPEC VARICIES INJ 05/06/2022 Dr Sawyer repeat in 1 year I & D OR PERIRECTAL/ISCHIORECTAL ABSCESS 07/02/2021 I&D EYELID CYST 1981 I&D ISCHIORECTAL&/PERIRECTAL ABSCESS SPX 06/30/2021 FAMILY HISTORY Problem Relation Age of Onset Hypertension Mother Hypertension Father other (ASD) Father Hypertension Brother other (ASD) Brother other (bone tumor) Maternal Grandmother cancer Colon Cancer Maternal Grandfather Hypertension Maternal Grandfather other (esophageal cancer) Paternal Grandmother Stroke Paternal Grandfather other (ASD) Maternal Aunt Social History Tobacco Use Smoking status: Former Packs/day: .5 Types: Cigarettes Start date: 1999 Quit date: 2007 Years since quittin.6 Smokeless tobacco: Never Vaping Use Vaping Use: Never used Substance Use Topics Alcohol use: Yes Comment: socially Drug use: No Reviewed current medications, allergies, past medical history, surgical history, family history and social history today. REVIEW OF SYSTEMS All other reviewed and negative other than HPI. VITALS: BP 138/86 Pulse 72 Resp 16 Wt 123.5 kg (272 lb 3.2 oz) SpO2 98% BMI 34.93 kg/m Last 4 Encounter Wt Readings: Date: Wt: 04/14/2023 123.5 kg (272 lb 3.2 oz) 07/09/2022 123 kg (271 lb 3.2 oz) 10/16/2021 116.6 kg (257 lb) 08/06/2021 116.7 kg (257 lb 3.2 oz) PHYSICAL EXAMINATION: General appearance: Well appearing, alert, in no acute distress, well-hydrated, well nourished. Skin: Skin color, texture, turgor normal, no suspicious rashes or lesions BACK: Normal curvature of spine. No spine tenderness. Straight leg test postive at less than 45 degrees on right. Deep tendon reflexes 2+/4 at patellas. Normal lower extremity strength. Extremities: No deformities, edema, skin discoloration, clubbing or cyanosis. Good capillary refill. Musculoskeletal: No joint swelling, deformity, or tenderness ASSESSMENT/PLAN: 1. Lumbar spine pain - ICD9: 724.2, ICD10: M54.50 - ice. Discussed risks and benefits of new medication with the patient. Advised them to call if any side effects or questions. Red flags for re-assessment reviewed with patient in detail. Call if symptoms worsen at all or if not better in one to two weeks Reviewed diagnosis and treatment options in detail. Questions were answered. Patient expressed understanding of treatment plan. - XR LUMBAR GENERAL 3V AP/LAT/L5-S1 - METHYLPREDNISOLONE 4 MG TABLETS IN A DOSE PACK - CYCLOBENZAPRINE 10 MG TABLET - XR LUMBAR GENERAL 3V AP/LAT/L5-S1 Riana Benavides MD documented in this encounter [facility] 07-13-2022 Note HNO ID: [id number] Author: Mark Syed PA-C Service: ? Author Type: Physician Noc Engineer Type: Progress Notes Filed: 07/13/2022 3:16 PM Note Text: Telemedicine Visit - Distance Health Virtual Visit Note Patient seen on [employer] platform. Location of patient: [place] History of Present Illness Ignacio Wallis is a 42 year old year old male who presents for the past 2 days with symptoms that are:stable. Symptoms include: Positive for Fever, Nasal congestion, Face pain/pressure, and Fatigue, Negative for Nausea, Emesis, and Diarrhea Oral intake: normal Tobacco use: No Second hand smoke exposure: No Recent exposure to strep:No Sick contacts: denies Recent travel: denies OTC meds/remedies that patient has tried: 400 mg ibuprofen TID and mucinex Took negative covid test yesterday PAST MEDICAL HISTORY Diagnosis Date Eczema Perirectal abscess 06/2021 Ulcerative colitis (HCC) 2012 PAST SURGICAL HISTORY Procedure Laterality Date COLONOSCOPY GEN ANES 05/06/2022 Dr Sawyer repeat in 2 years EGD W/O BRSH SPEC VARICIES INJ 05/06/2022 Dr Sawyer repeat in 1 year I AND D OR PERIRECTAL/ISCHIORECTAL ABSCESS 07/02/2021 IANDD EYELID CYST 1981 IANDD ISCHIORECTALAND/PERIRECTAL ABSCESS SPX 06/30/2021 FAMILY HISTORY Problem Relation Age of Onset Hypertension Mother Hypertension Father other (ASD) Father Hypertension Brother other (ASD) Brother other (bone tumor) Maternal Grandmother cancer Colon Cancer Maternal Grandfather Hypertension Maternal Grandfather other (esophageal cancer) Paternal Grandmother Stroke Paternal Grandfather other (ASD) Maternal Aunt Social History Tobacco Use Smoking status: Former Packs/day: 0.50 Types: Cigarettes Start date: 1999 Quit date: 2007 Years since quittin.9 Smokeless tobacco: Never Vaping Use Vaping Use: Never used Substance Use Topics Alcohol use: Yes Comment: socially Drug use: No Current Outpatient Medications Medication Sig multivit-min/folic/vit K/lycop (ONE-A-DAY MEN'S MULTIVITAMIN ORAL) Take by mouth. No current facility-administered medications for this visit. ALLERGIES No Known Allergies Video Exam (Examination performed via Video enabled technology) General appearance: Alert, oriented, pleasant, in NAD :Yes Ill appearing :Yes Lethargic appearing :No Eyes: Sclera clear :Yes Conjunctiva without erythema :Yes Ears: Tragus / outer ear tenderness by self palpation :No Oropharynx: normal, no erythema Frontal sinus tenderness by self palpation;No Maxillary sinus tenderness by self palpation :No Tender cervical adenopathy by self palpation :No Respiratory distress :No Coughing noted :Yes Audible wheezing noted :No ASSESSMENT/PLAN: 1. Viral upper respiratory illness - ICD9: 465.9, ICD10: J06.9 - Discussed viral etiology and rationale for treatment. - Symptomatic treatment with prn analgesia - Supportive care with fluids and rest - The patient may also use OTC cough and cold meds as needed. - Follow up in 3-5 days if symptoms persist or sooner if worsening of symptoms Offered covid/ flu testing via PCR pt declined Mark Syed PA-C -Tylenol (generic acetaminophen) 500 mg-2 tabs every 8 hrs. as needed for fever and aches -Sudafed (generic is fine), behind the counter, 2x30 mg tabs twice daily as needed for congestion -Mucinex (generic is fine) 1200 mg twice daily to help with cough and to thin out mucus -[email or web address]/. This link shares information about when antibiotics may help and when they may not. - Red flags discussed for need for in person care - All questions answered Mark Syed PA-C If you let us know who your primary care provider is, we will send them a notification of today?s visit through our electronic medical records system. Since not all providers have access to our notifications, we strongly encourage you to share the following record of today?s visit with your primary care provider at your next visit. This will help in providing you the best care. If you do not have an established Primary Care physician and would like to continue care with a [facility] Primary Care physician, please ask your provider to place a Establish Primary Care order. Use MedWhat to manage your care, wherever you are, 14/03, on your mobile device or computer. MedWhat connects you to [email or web address] so you can access all your health information in one place and also schedule and request virtual appointments with primary care providers. [facility] 07-13-2022 History of Present illness Narrative Telemedicine Visit - Distance Health Virtual Visit Note Patient seen on [employer] platform. Location of patient: [place] History of Present Illness Ignacio Wallis is a 42 year old year old male who presents for the past 2 days with symptoms that are:stable. Symptoms include: Positive for Fever, Nasal congestion, Face pain/pressure, and Fatigue, Negative for Nausea, Emesis, and Diarrhea Oral intake: normal Tobacco use: No Second hand smoke exposure: No Recent exposure to strep:No Sick contacts: denies Recent travel: denies OTC meds/remedies that patient has tried: 400 mg ibuprofen TID and mucinex Took negative covid test yesterday PAST MEDICAL HISTORY Diagnosis Date Eczema Perirectal abscess 06/2021 Ulcerative colitis (HCC) 2012 PAST SURGICAL HISTORY Procedure Laterality Date COLONOSCOPY GEN ANES 05/06/2022 Dr Sawyer repeat in 2 years EGD W/O BRSH SPEC VARICIES INJ 05/06/2022 Dr Sawyer repeat in 1 year I & D OR PERIRECTAL/ISCHIORECTAL ABSCESS 07/02/2021 I&D EYELID CYST 1981 I&D ISCHIORECTAL&/PERIRECTAL ABSCESS SPX 06/30/2021 FAMILY HISTORY Problem Relation Age of Onset Hypertension Mother Hypertension Father other (ASD) Father Hypertension Brother other (ASD) Brother other (bone tumor) Maternal Grandmother cancer Colon Cancer Maternal Grandfather Hypertension Maternal Grandfather other (esophageal cancer) Paternal Grandmother Stroke Paternal Grandfather other (ASD) Maternal Aunt Social History Tobacco Use Smoking status: Former Packs/day: 0.50 Types: Cigarettes Start date: 1999 Quit date: 2007 Years since quittin.9 Smokeless tobacco: Never Vaping Use Vaping Use: Never used Substance Use Topics Alcohol use: Yes Comment: socially Drug use: No Current Outpatient Medications Medication Sig multivit-min/folic/vit K/lycop (ONE-A-DAY MEN'S MULTIVITAMIN ORAL) Take by mouth. No current facility-administered medications for this visit. ALLERGIES No Known Allergies Video Exam (Examination performed via Video enabled technology) General appearance: Alert, oriented, pleasant, in NAD :Yes Ill appearing :Yes Lethargic appearing :No Eyes: Sclera clear :Yes Conjunctiva without erythema :Yes Ears: Tragus / outer ear tenderness by self palpation :No Oropharynx: normal, no erythema Frontal sinus tenderness by self palpation;No Maxillary sinus tenderness by self palpation :No Tender cervical adenopathy by self palpation :No Respiratory distress :No Coughing noted :Yes Audible wheezing noted :No ASSESSMENT/PLAN: 1. Viral upper respiratory illness - ICD9: 465.9, ICD10: J06.9 - Discussed viral etiology and rationale for treatment. - Symptomatic treatment with prn analgesia - Supportive care with fluids and rest - The patient may also use OTC cough and cold meds as needed. - Follow up in 3-5 days if symptoms persist or sooner if worsening of symptoms Offered covid/ flu testing via PCR pt declined Mark Syed PA-C -Tylenol (generic acetaminophen) 500 mg-2 tabs every 8 hrs. as needed for fever and aches -Sudafed (generic is fine), behind the counter, 2x30 mg tabs twice daily as needed for congestion -Mucinex (generic is fine) 1200 mg twice daily to help with cough and to thin out mucus -[email or web address] This link shares information about when antibiotics may help and when they may not. - Red flags discussed for need for in person care - All questions answered Mark Syed PA-C If you let us know who your primary care provider is, we will send them a notification of today s visit through our electronic medical records system. Since not all providers have access to our notifications, we strongly encourage you to share the following record of today s visit with your primary care provider at your next visit. This will help in providing you the best care. If you do not have an established Primary Care physician and would like to continue care with a [facility] Primary [facility] physician, please ask your provider to place a Establish Primary Care order. Use MedWhat to manage your care, wherever you are, 14/03, on your mobile device or computer. MedWhat connects you to [employer] so you can access all your health information in one place and also schedule and request virtual appointments with primary care providers. documented in this encounter [facility] 07-09-2022 Note HNO ID: [id number] Author: Enedelia Davenport PA-C Service: ? 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 . Last Mg level if on PPI chronically: none. Heartburn is controlled: Yes. Dysphagia: Yes but has improved in last several months. Bloody or black stools: regular first thing in the morning, may be twice, formed to soft. No black or tarry stools or mucus. Occasional tenesmus. Bowel changes: improved. Last EGD and/or colonoscopy: 05/06/[address] [facility]: Findings: - Perianal and digital rectal examinations were normal. - Inflammation was found in a continuous and circumferential pattern from the sigmoid colon to the splenic flexure. This was graded as Gonzalez Score 1 (mild, with erythema, decreased vascular pattern, mild friability), and when compared to the previous examination, the findings are unchanged. Biopsies were taken with a cold forceps for histology. - VA patchy area of the terminal ileum was congested. Biopsies were taken with a cold forceps for histology. Impression: - Mild (Gonzalez Score 1) ulcerative colitis, unchanged since the last examination. Biopsied. - Congested mucosa in the terminal ileum. Biopsied. Ddd (degenerative disc disease), cervical (primary encounter diagnosis) Not doing too bad Staying active, 5 days a week waking/ running on treadmill or outside a few miles. Playing some basetball. Anxiety with depression Current medications: Desvenlafaxine 25mg daily Stopped taking after our last visit. Feeling pretty good. Occasional anxiety Intrinsic eczema Doing well. HISTORIES FAMILY HISTORY Problem Relation Age of Onset Hypertension Mother Hypertension Father other (ASD) Father Hypertension Brother other (ASD) Brother other (bone tumor) Maternal Grandmother Colon Cancer Maternal Grandfather Hypertension Maternal Grandfather Stroke Maternal Grandfather other (esophageal cancer) Paternal Grandmother other (ASD) Sister other (ASD) Maternal Aunt PAST MEDICAL HISTORY Diagnosis Date Eczema Perirectal abscess 06/2021 Ulcerative colitis (HCC) 2012 PAST SURGICAL HISTORY Procedure Laterality Date COLONOSCOPY GEN ANES 05/06/2022 Dr Sawyer repeat in 2 years EGD W/O BRSH SPEC VARICIES INJ 05/06/2022 Dr Sawyer repeat in 1 year I AND D OR PERIRECTAL/ISCHIORECTAL ABSCESS 07/02/2021 IANDD EYELID CYST 1981 IANDD ISCHIORECTALAND/PERIRECTAL ABSCESS SPX 06/30/2021 Social History Tobacco Use Smoking status: Former Packs/day: 0.50 Types: Cigarettes Start date: 1999 Quit date: 2007 Years since quittin.8 Smokeless tobacco: Never Vaping Use Vaping Use: Never used Substance Use Topics Alcohol use: Yes Comment: socially Drug use: No ACTIVE PROBLEM LIST Ulcerative Colitis Without Complications (Hcc) Intrinsic Eczema Neck Pain Ddd (Degenerative Disc Disease), Cervical Current Outpatient Medications Medication Sig Dispense Refill omeprazole (PRILOSEC) 20 mg capsule Take 1 capsule by mouth daily before breakfast. 1/2 hr before meal. 30 capsule 2 desvenlafaxine ER (PRISTIQ) 25 mg 24 hr tablet Take 1 tablet by mouth once daily. 30 tablet 2 multivit-min/folic/vit K/lycop (ONE-A-DAY MEN'S MULTIVITAMIN ORAL) Take by mouth. No current facility-administered medications for this visit. HEPATITIS A(1 of 2 - Risk 2-dose series) Never done MENINGOCOCCAL B: Consider based on risk(1 of 4 - Increased Risk Bexsero 2-dose series) Never done MMR(1 of 2 - Risk 2-dose series) Never done DEPRESSION ASSESSMENT Never done COVID-19 VACCINE(4 - Booster for Pfizer series) due on 10/23/2021 INFLUENZA(1) due on 04/22/2022 REVIEW OF SYMPTOMS: General: denies fatigue, unusual weight loss or gain, fevers, chills. Energy Level: good. Exercise playing baket, walking or running 5 times a week. Sleep: hours: 7-7.5h not always rested. Diet: eating whatever Tobacco use: none. Caffeine use: diet Coke here or there. Occasionally. ETOH use: wine, beer, cocktail not even weekly. Couple times a months. Marijuana use: none. Illicit drug use: none. Eyes: denies change in vision, glaucoma, cataracts. No glasses/contacts. Last eye exam: none. EENT: spring allergies: uses flonase as needed. denies recurrent sinus infection, unusual nasal drainage, hoarsemess, sore throat, or recurrent sore in mouth or tongue. (more content not included)... [facility] 07-09-2022 Instructions Enedelia Davenport PA-C - 07/09/2022 3:30 PM EST HEALTH MAINTENANCE Routine health maintenance, including regular aerobic exercise, low fat diet, and periodic exams. Your Body mass index is 34.8 kg/m . (Target BMI: 19-25) Pap guidelines: PAP smear yearly or every other year between 20-30, then every 3 years if negative HPV Mammogram yearly starting at age 40. Calcium 1200mg, Vitamin D3 800-2,000 IU and 400mcg folic acid recommended. Recommend sunscreen and regular dental examinations. 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 . Last Mg level if on PPI chronically: none. Heartburn is controlled: Yes. Dysphagia: Yes but has improved in last several months. Bloody or black stools: regular first thing in the morning, may be twice, formed to soft. No black or tarry stools or mucus. Occasional tenesmus. Bowel changes: improved. Last EGD and/or colonoscopy: 05/06/[address] [facility]: Findings: - Perianal and digital rectal examinations were normal. - Inflammation was found in a continuous and circumferential pattern from the sigmoid colon to the splenic flexure. This was graded as Gonzalez Score 1 (mild, with erythema, decreased vascular pattern, mild friability), and when compared to the previous examination, the findings are unchanged. Biopsies were taken with a cold forceps for histology. - VA patchy area of the terminal ileum was congested. Biopsies were taken with a cold forceps for histology. Impression: - Mild (Gonzalez Score 1) ulcerative colitis, unchanged since the last examination. Biopsied. - Congested mucosa in the terminal ileum. Biopsied. Ddd (degenerative disc disease), cervical (primary encounter diagnosis) Not doing too bad Staying active, 5 days a week waking/ running on treadmill or outside a few miles. Playing some basetball. Anxiety with depression Current medications: Desvenlafaxine 25mg daily Stopped taking after our last visit. Feeling pretty good. Occasional anxiety Intrinsic eczema Doing well. HISTORIES FAMILY HISTORY Problem Relation Age of Onset Hypertension Mother Hypertension Father other (ASD) Father Hypertension Brother other (ASD) Brother other (bone tumor) Maternal Grandmother Colon Cancer Maternal Grandfather Hypertension Maternal Grandfather Stroke Maternal Grandfather other (esophageal cancer) Paternal Grandmother other (ASD) Sister other (ASD) Maternal Aunt PAST MEDICAL HISTORY Diagnosis Date Eczema Perirectal abscess 06/2021 Ulcerative colitis (HCC) 2012 PAST SURGICAL HISTORY Procedure Laterality Date COLONOSCOPY GEN ANES 05/06/2022 Dr Sawyer repeat in 2 years EGD W/O BRSH SPEC VARICIES INJ 05/06/2022 Dr Sawyer repeat in 1 year I & D OR PERIRECTAL/ISCHIORECTAL ABSCESS 07/02/2021 I&D EYELID CYST 1981 I&D ISCHIORECTAL&/PERIRECTAL ABSCESS SPX 06/30/2021 Social History Tobacco Use Smoking status: Former Packs/day: 0.50 Types: Cigarettes Start date: 1999 Quit date: 2007 Years since quittin.8 Smokeless tobacco: Never Vaping Use Vaping Use: Never used Substance Use Topics Alcohol use: Yes Comment: socially Drug use: No ACTIVE PROBLEM LIST Ulcerative Colitis Without Complications (Hcc) Intrinsic Eczema Neck Pain Ddd (Degenerative Disc Disease), Cervical Current Outpatient Medications Medication Sig Dispense Refill omeprazole (PRILOSEC) 20 mg capsule Take 1 capsule by mouth daily before breakfast. 1/2 hr before meal. 30 capsule 2 desvenlafaxine ER (PRISTIQ) 25 mg 24 hr tablet Take 1 tablet by mouth once daily. 30 tablet 2 multivit-min/folic/vit K/lycop (ONE-A-DAY MEN'S MULTIVITAMIN ORAL) Take by mouth. No current facility-administered medications for this visit. HEPATITIS A(1 of 2 - Risk 2-dose series) Never done MENINGOCOCCAL B: Consider based on risk(1 of 4 - Increased Risk Bexsero 2-dose series) Never done MMR(1 of 2 - Risk 2-dose series) Never done DEPRESSION ASSESSMENT Never done COVID-19 VACCINE(4 - Booster for Pfizer series) due on 10/23/2021 INFLUENZA(1) due on 04/22/2022 REVIEW OF SYMPTOMS: General: denies fatigue, unusual weight loss or gain, fevers, chills. Energy Level: good. Exercise playing baket, walking or running 5 times a week. Sleep: hours: 7-7.5h not always rested. Diet: eating whatever Tobacco use: none. Caffeine use: diet Coke here or there. Occasionally. ETOH use: wine, beer, cocktail not even weekly. Couple times a months. Marijuana use: none. Illicit drug use: none. Eyes: denies change in vision, glaucoma, cataracts. No glasses/contacts. Last eye exam: none. EENT: spring allergies: uses flonase as needed. denies recurrent sinus infection, unusual nasal drainage, hoarsemess, sore throat, or recurrent sore in mouth or tongue. Cardiovascular: denies chest pain , SOB, palpitation, irregular or racing heart beats, orthopnea, leg swelling, history of rheumatic fever or prior heart conditions. Occasional lightheadedness with bending down and standing. Respiratory: denies unusual cough, SOB, wheezing, history of recurrent bronchitis, pneumonia or tuberculosis. Denies day time drowsiness. Sometimes if sleeps on back, not disruptive. Snoring. No sleep apnea: None witnessed. GI: denies difficulty swallowing, nausea, vomiting, change in appetite. No change in bowel habits. Denies constipation, diarrhea, rectal bleeding or hemorrhoids, incontinence. No history of GERD, PUD, jaundice/hepatitis, GB disease, diverticulosis, colorectal cancer, hernias. Kidney/Bladder: Denies frequency, burning. Nocturia if drinks before bed, incontinence none. No history of kidney stones, recurrent UTI or kidney infection. Normal erections, normal libido. Skin: Minor eczema. denies unusual rashes. No history of skin cancer, bleeding/changing moles, or unusual skin lesions. Neurologic: Denies recurrent FARR, change in vision, hearing or smell, tremors, unusual weakness, loss of sensation, or difficulty with balance or gait. No history of epilepsy/convulsions, migraine, head/spinal injuries, or stroke/TIA. Psychiatric: denies unusual worry, moodiness, depression, suicidal ideation or unusual disturbance in relationships. No history of psychiatric illness. Endocrine: denies unusual thirst, hunger, excessive urination, change in skin or hair texture, emotional lability. No history of thryoid, pituitary or hormonal problems. Hematologic: denies unusual bleeding, bruising, or history of anemia or blood transfusion. Denies hx blood clots. Infections: denies risk factors for HIV, hepatitis or history of unusual infection. Immunizations are up to date. Musculoskeletal: denies unusual stiffness, muscles aches, joint pain, or swelling. Denies recurrent sprain or disruption of joints, debilitating arthritis, gout, or other musculoskeletal disease. no Hx back injury, spinal stenosis, radiculopathy. EXAM: BP 130/82 Pulse 77 Resp 18 Ht 188 cm (6' 2.02 ) Wt 123 kg (271 lb 3.2 oz) SpO2 97% BMI 34.80 kg/m Pleasant well appearing man, over weight but muscular undercarriage, in no acute distress. Alert and oriented all spheres. Normal affect and cognition. Speech normal. No deficits to learning or comprehension. Skin warm, dry, pink to lips and nailbeds. Normal turgor. Several benign appearing moles. Respirations regular and unlabored. HEENT: NCAT. No scleral icterus or conjunctival injection. TM's clear. Nose and oropharynx free from injection or lesion. Oral membranes moist and pink. No cervical lymph nodes. Thyroid non-tender, no masses, or enlargement. Carotids pulses 2+/4+ without bruits. No JVD with HOB at 30 degrees. Chest is normal shape. Lungs are clear to all baker with good air exchange through out. HRRR without murmur or gallop. No lifts, heaves, or rubs. Abdomen: active bowel sounds throughout, soft, nontender, no masses or organomegaly. No CVAT. Extrem: no clubbing or cyanosis. Edema: none. Extremities are warm and pink with prompt capillary refill. Right ankle with significant laxity and valgus deviation on toe raise. Gait and balance normal. Sensation grossly intact. Negative findings: speech normal, mental status intact, cranial nerves 2-12 intact, muscle tone normal, DTRs 2/4+ and symmetric ASSESSMENT/PLAN: 1. Wellness examination - ICD9: V70.0, ICD10: Z00.00 (primary diagnosis) - Counseled on healthy diet and regular exercise - Discussed need for and benefit of weight loss. BMI 34.80 kg/(m^2) - Depression screening tool completed and reviewed with patient. Based on score and interview, patient is not at risk for depression and recommended no further intervention at this time. - Follow up for annual exam in one year 2. Ulcerative pancolitis without complication (HCC) - ICD9: 556.6, ICD10: K51.[address] [facility]. Doing well 3. GERD without esophagitis - ICD9: 530.81, ICD10: K21.9 - Discussed lifestyle modifications including losing weight, limiting caffeine, no meals three hours before sleep, and head of bed elevation - CBC - COMP METABOLIC PANEL 4. DDD (degenerative disc disease), cervical - ICD9: 722.4, ICD10: M50.30 Stable, not bothersome at this visit 5. Anxiety with depression - ICD9: 300.4, ICD10: F41.8 Stopped desvenlafaxine. Still some anxiety but managing. - CBC - COMP METABOLIC PANEL 6. Intrinsic eczema - ICD9: 691.8, ICD10: L20.84 - Dry skin care instructions reviewed - Use mild soap like Dove, Aveeno or Cetaphil - limit shower/bath to less than 15 minutes with warm, not hot, water - BID use of recommended emollients such as Cetaphil, Eucerin Plus, Aveeno, Aquaphor - Follow up if symptoms persist or worsen. 7. Screening for lipid disorders - ICD9: V77.91, ICD10: Z13.220 - LIPID PANEL BASIC F/u 1 year and as needed. Enedelia Davenport PA-C documented in this encounter [facility] 02-08-2022 Miscellaneous Notes Patient phones requesting refills as follows: Pending Prescriptions Disp Refills OMEPRAZOLE 20 MG CAPSULE,DELAYED RELEASE 30 capsule 2 Sig: Take 1 capsule by mouth daily before breakfast. 1/2 hr before meal. JANIE: No GARCIA 11/27/21 (VV) NOV no upcoming appt Please review and advise. Maverick Weiss LPN documented in this encounter [facility] 11-30-2021 Miscellaneous Notes Appointment canceled. Patient has an appointment scheduled with Delilah on 12/01 that needs to be rescheduled. Patient has a diagnosis of UC and Delilah does not see patients with this dx. documented in this encounter [facility] 11-27-2021 History of Present illness Narrative 41 year old male with c/o f/u new mediciiton, anxiety, UC MyChart video visit was used for evaluation of this patient. Location of patient: [place] Patient was offered a virtual/telemedicine appointment in lieu of an office visit due to recommendations to reduce patient exposure to COVID-19. Patient is aware of limitations of performing the visit without a face to face visit in the office setting and agrees. 2:21 PM Anxiety with depression (primary encounter diagnosis) Current medications: desvenlafaxine 25mg daily Was a little tired at first but feels much better on medication. Close to normal self. 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 Feels he really is changing perspective and creating more balance in work-home Ulcerative colitis without complications, unspecified location (hcc) Elevated alkaline phosphatase level Has felt good since Very regular. HISTORIES FAMILY HISTORY Problem Relation Age of Onset Hypertension Mother Hypertension Father other (ASD) Father Hypertension Brother other (ASD) Brother other (bone tumor) Maternal Grandmother Colon Cancer Maternal Grandfather Hypertension Maternal Grandfather Stroke Maternal Grandfather other (esophageal cancer) Paternal Grandmother other (ASD) Sister other (ASD) Maternal Aunt PAST MEDICAL HISTORY Diagnosis Date Eczema Perirectal abscess 06/2021 Ulcerative colitis (HCC) 2012 PAST SURGICAL HISTORY Procedure Laterality Date COLONOSCOPY GEN ANES I & D OR PERIRECTAL/ISCHIORECTAL ABSCESS 07/02/2021 I&D EYELID CYST 1981 I&D ISCHIORECTAL&/PERIRECTAL ABSCESS SPX 06/30/2021 Social History Tobacco Use Smoking status: Former Smoker Packs/day: 0.50 Start date: 1999 Quit date: 2007 Years since quittin.2 Smokeless tobacco: Never Used Vaping Use Vaping Use: Never used Substance Use Topics Alcohol use: Yes Comment: socially Drug use: No ACTIVE PROBLEM LIST Ulcerative Colitis Without Complications (Hcc) Intrinsic Eczema Neck Pain Ddd (Degenerative Disc Disease), Cervical Current Outpatient Medications Medication Sig Dispense Refill desvenlafaxine ER (PRISTIQ) 25 mg 24 hr tablet Take 1 tablet by mouth once daily. 30 tablet 2 omeprazole (PRILOSEC) 20 mg capsule Take 1 capsule by mouth daily before breakfast. 1/2 hr before meal. 30 capsule 2 multivit-min/folic/vit K/lycop (ONE-A-DAY MEN'S MULTIVITAMIN ORAL) Take by mouth. No current facility-administered medications for this visit. There are no preventive care reminders to display for this patient. EXAM: There were no vitals taken for this visit. Pleasant well appearing adult man in no acute distress. Alert and oriented all spheres. Mood euthymic. Affect congruent, more relaxed, cheerful. Seems more relaxed. Normal cognition. Speech normal. No deficits to learning or comprehension. Skin appears dry, pink to lips. Oral membranes moist. Normal turgor. Respirations regular and unlabored. Moving easily ASSESSMENT/PLAN: 1. Anxiety with depression - ICD9: 300.4, ICD10: F41.8 (primary diagnosis) Follow up in 3 months virtual. Continue current meds. 2. Ulcerative colitis without complications, unspecified location (HCC) - ICD9: 556.9, ICD10: K51.90 Talked with Delilah Martinez: said she couldn't see him as she doesn't treat this condition. 3. Elevated alkaline phosphatase level - ICD9: 790.5, ICD10: R74.8 Reject labs 2:37 PM See orders and/or patient instructions. Patient ( or Guardian) expressed understanding of instructions on review. Enedelia Davenport PA-C documented in this encounter [facility] GERD without esophagitis Esophageal reflux [facility] Diagnosis Wellness examination- Primary Ulcerative pancolitis without complication (HCC) GERD without esophagitis Esophageal reflux DDD (degenerative disc disease), cervical Degeneration of cervical intervertebral disc Anxiety with depression Intrinsic eczema Screening for lipid disorders [facility] Diagnosis Viral upper respiratory illness- Primary Acute upper respiratory infections of unspecified site [facility] Diagnosis Lumbar spine pain- Primary Lumbago [facility] Diagnosis Right leg pain- Primary Pain in limb Radiculopathy of lumbar region Thoracic or lumbosacral neuritis or radiculitis, unspecified [facility] Diagnosis Ulcerative pancolitis without complication (HCC)- Primary Radiculopathy of lumbar region Thoracic or lumbosacral neuritis or radiculitis, unspecified GERD without esophagitis Esophageal reflux DDD (degenerative disc disease), cervical Degeneration of cervical intervertebral disc Anxiety with depression Ulcerative colitis without complications, unspecified location (HCC) Elevated alkaline phosphatase level Other nonspecific abnormal serum enzyme levels Hyperlipidemia, mixed Mixed hyperlipidemia Current use of proton pump inhibitor Encounter for long-term (current) use of other medications Class 1 obesity with body mass index (BMI) of 30.0 to 30.9 in adult, unspecified obesity type, unspecified whether serious comorbidity present Well adult exam Routine general medical examination at a health care facility [facility] Diagnosis Class 2 obesity with body mass index (BMI) of 35.0 to 35.9 in adult, unspecified obesity type, unspecified whether serious comorbidity present- Primary [facility] Diagnosis Radiculopathy of lumbar region Thoracic or lumbosacral neuritis or radiculitis, unspecified DDD (degenerative disc disease), cervical Degeneration of cervical intervertebral disc [facility] Diagnostic Procedure Only (Urgent) - Closed Specialty Diagnoses / Procedures Referred By Erik rene Referred To Contact XR IMAGING Diagnoses Lumbar spine pain Procedures XR LUMBAR GENERAL 3V AP/LAT/L5-S1 RADEX SPINE LUMBOSACRAL 2/3 VIEWS Riana Benavides MD [address] [place] [address] Xr Imaging [facility] Referral ID Status Reason Start Date Expiration Date V isits Requested Visits Authorized [id number] Closed Auto-Generate d Referral 04/14/2023 05/13/2024 1 1 [facility] Reason for Referral Specialty Diagnoses / Procedures Referred By Erik erne Referred To Contact MR IMAGING Diagnoses Radiculopathy of lumbar region Procedures MRI LUMBAR SPINE WO IVCON MRI SPINAL CANAL LUMBAR W/O CONTRAST MATERIAL Rita Malloy APRN.ACCOUNT GENERAL MANAGER [address] [place] [address] [place] [address] Referral ID Status Reason Start Date Expiration Date Visits Requested Visits Authorized [id number] Pending Review Auto-Generat ed Referral 04/27/2023 05/26/2024 1 1 Specialty Diagnoses / Procedures Referred By Erik t Referred To Contact [facility] Diagnoses Radiculopathy of lumbar region DDD (degenerative disc disease), cervical Procedures CONSULT TO PHYSICAL THERAPY PHYSICAL THERAPY EVALUATION HIGH COMPLEX 45 MINS Enedelia Davenport PA-C [address] [place] [address] [facility] [address] [place] [address] Referral ID Status Reason Start Date Expiration Date Visits Requested Visits Authorized [id number] Pending Review Auto-Generat ed Referral 10/14/2023 10/13/2024 1 1 Specialty Diagnoses / Procedures Referred By Contac t Referred To Contact Diagnoses Class 2 obesity with body mass index (BMI) of 35.0 to 35.9 in adult, unspecified obesity type, unspecified whether serious comorbidity present Enedelia Davenport PA-C [address] [place] [address] Referral ID Status Reason Start Date Expiration Date V isits Requested Visits Authorized [id number] Authorized 10/20/2023 05/20/2024 1 1 Summary Purpose Family History No Family History Records FoundNo Family History Records Found Advance Directives No Advanced Directives Records FoundNo Advanced Directives Records Found Additional Source Comments Source Comments (unrecognize d section and content) In the event this informatio n is protected by the Federal Confidentiality of Alcohol and Drug Abuse Patient Records regulations: The Federal rules restrict any use of the information to criminally investigate or prosecute any alcohol or drug abuse patient.[facility] event this information is protected by the Federal Confidentiality of Alcohol and Drug Abuse Patient Records regulations: The Federal rules restrict any use of the information to criminally investigate or prosecute any alcohol or drug abuse patient.[facility] the event this information is protected by the Federal Confidentiality of Alcohol and Drug Abuse Patient Records regulations: The Federal rules restrict any use of the information to criminally investigate or prosecute any alcohol or drug abuse patient.[facility] the event this information is protected by the Federal Confidentiality of Alcohol and Drug Abuse Patient Records regulations: The Federal rules restrict any use of the information to criminally investigate or prosecute any alcohol or drug abuse patient.[facility] the event this information is protected by the Federal Confidentiality of Alcohol and Drug Abuse Patient Records regulations: The Federal rules restrict any use of the information to criminally investigate or prosecute any alcohol or drug abuse patient.[facility] the event this information is protected by the Federal Confidentiality of Alcohol and Drug Abuse Patient Records regulations: The Federal rules restrict any use of the information to criminally investigate or prosecute any alcohol or drug abuse patient.[facility] the event this information is protected by the Federal Confidentiality of Alcohol and Drug Abuse Patient Records regulations: The Federal rules restrict any use of the information to criminally investigate or prosecute any alcohol or drug abuse patient.[facility] the event this information is protected by the Federal Confidentiality of Alcohol and Drug Abuse Patient Records regulations: The Federal rules restrict any use of the information to criminally investigate or prosecute any alcohol or drug abuse patient.[facility] the event this information is protected by the Federal Confidentiality of Alcohol and Drug Abuse Patient Records regulations: The Federal rules restrict any use of the information to criminally investigate or prosecute any alcohol or drug abuse patient.[facility] the event this information is protected by the Federal Confidentiality of Alcohol and Drug Abuse Patient Records regulations: The Federal rules restrict any use of the information to criminally investigate or prosecute any alcohol or drug abuse patient.[facility] the event this information is protected by the Federal Confidentiality of Alcohol and Drug Abuse Patient Records regulations: The Federal rules restrict any use of the information to criminally investigate or prosecute any alcohol or drug abuse patient.[facility] Reason for Visit (unrecogniz ed section and content) Reason Comments Appointment Rescheduled Reason Comments Physical Reason Comments Upper Respiratory Infection Reason Comments Back Pain Whole low back pain mainly on right side Reason Comments Follow Up Right leg numbness Reason Comments Yearly Exam Reason Comments Insurance Authorization Reason Comments Physical Therapy Specialty Diagnoses / Procedures Referred By Erik rene Referred To Contact [facility] Diagnoses Radiculopathy of lumbar region DDD (degenerative disc disease), cervical Procedures CONSULT TO PHYSICAL THERAPY PHYSICAL THERAPY EVALUATION HIGH COMPLEX 45 MINS Enedelia Davenport PA-C [address] [place] [address] [facility] [address] [place] [address] Referral ID Status Reason Start Date Expiration Date Visits Requested Visits Authorized [id number] Authorized Auto-Generat ed Referral 08/22/2023 08/21/2024 18 18 Care Teams (unrecognized sec tion and content) Channel Executive Relationship Specialty Start Date End Date Riana Benavides MD [address] [place], [place] [id number] PCP - General Family Practice 05/24/18 Channel Executive Relationship Specialty Start Date End Date Riana Benavides MD [address] [place], [place] [id number] PCP - General Family Practice 05/24/18 Channel Executive Relationship Specialty Start Date End Date Riana Benavides MD [address] [facility] [place] [address] PCP - General Family Medicine 05/24/18 Channel Executive Relationship Specialty Start Date End Date Riana Benavides MD [address] [facility] [place] [address] PCP - General Family Medicine 05/24/18 Channel Executive Relationship Specialty Start Date End Date Riana Benavides MD [address] [place] [place] [address] PCP - General Family Medicine 05/24/18 Channel Executive Relationship Specialty Start Date End Date Riana Benavides MD [address] [place] [place] [address] PCP - General Family Medicine 05/24/18 Channel Executive Relationship Specialty Start Date End Date Riana Benavides MD [address] [facility] [place], [place] [id number] PCP - General Family Medicine 05/24/18 Channel Executive Relationship Specialty Start Date End Date Riana Benavides MD [address] [place] [place] [address] PCP - General Family Medicine 05/24/18 Channel Executive Relationship Specialty Start Date End Date Riana Benavides MD [address] [facility] [place] [address] PCP - General Family Medicine 05/24/18 (unrecognized sect ion and content) No Status Records FoundNo Status Records Found INFORMATION SOURCE (unrecogn ized section and content) DATE CREATED AUTHOR AUTHOR'S CHANDANA ATION 10/29/2023 [facility] Ce nter FOR RECORDS PERTAINING TO PATIENTS WHO ARE OR HAVE BEEN ENROLLED IN A CHEMICAL DEPENDENCY/SUBSTANCEABUSE PROGRAM, SOME INFORMATION MAY BE OMITTED. This clinical summary was aggregated from multiple sources. Caution should be exercised in using it in the provision of clinical care. This summary normalizes information from multiple sources, and as a consequence, information in this document may materially change the coding, format and clinical context of patient data. In addition, data may be omitted in some cases. CLINICAL DECISIONS SHOULD BE BASED ON THE PRIMARY CLINICAL RECORDS. [facility]. provides no warranty or guarantee of the accuracy or completeness of information in this document.
[2023-11-03 09:01] LABS: Absolute Lymphocyte Count 1.89 X10^3/uL (0.83-4.51); Absolute Neutrophil Count 3.1 X10^3/uL (2.0-7.7); Basophil# 0.04 X10^3/uL; Basophil% 0.7 % (0-1); Eosinophil# 0.18 X10^3/uL; Eosinophils% 3.1 % (0-5); Erythrocyte Sedimentation Rate 7 mm/hr (0-20); Hematocrit 43.8 % (40-54); Hemoglobin 14.2 g/dL (13.0-16.5); Lymphocyte # 1.89 X10^3/ul (0.83-4.51); Lymphocyte % 32.8 % (19-41); Mean Corp Hgb Conc 32.4 g/dL (32-36); Mean Corpuscular Hgb 27.8 pg (27.0-32.0); Mean Corpuscular Volume 85.7 fL (80-94); Mean Platelet Vol. 10.6 fl (6.2-12.0); Monocyte# 0.54 X10^3/uL; Monocyte% 9.4 % (0-10); NRBC Flagged by Analyzer 0 % (0-5); Neutrophil % 53.7 % (47-70); Platelet Count 217 K/mm3 (150-450); RBC Distribution Width CV 12.2 % (11.6-14.6); RBC Distribution Width SD 38.3 fl (35.1-43.9); Red Blood Count 5.11 M/mm3 (4.6-6.2); White Blood Count 5.8 K/mm3 (4.4-11.0)
[2023-11-03 13:37] LABS: ALB/GLOB Ratio 0.9 RATIO (0.9-2.4); AST(SGOT) 35 U/L (15-37); Alanine Aminotransfer ALT/SGPT 48 U/L (16-61); Albumin, Serum 3.6 g/dL (3.2-5.0); Alkaline Phosphatase 101 U/L (45-117); Anion Gap 5 (5-15); BUN 12 mg/dL (7-18); BUN/Creat Ratio 14.5 RATIO (10-20); CRP 6.31 mg/L (0.0-3.0); Calcium,Total 8.7 mg/dL (8.5-10.1); Chloride 107 mmol/L (98-107); Creatinine, Serum 0.83 mg/dL (0.70-1.30); EST Glomerular Filtration Rate 108 mL/min (>60); Est Glom Filt Rate - Afr Amer 130 mL/min (>60); Free T3 3.3 pg/mL (2.18-3.98); Glucose 97 mg/dL (74-106); LDH 198 U/L (87-241); Potassium 3.9 mmol/L (3.5-5.1); Protein, Total 7.6 g/dL (6.4-8.2); Sodium Level 140 mmol/L (136-145); T4 Free Direct 1.16 ng/dL (0.76-1.46); Thyroid Stim Hormone (TSH) 1.57 uIU/mL (0.358-3.74)
[2023-11-04 17:07] LABS: Anti-Mitochondrial AB <20.0 Units (0.0-20.0)
[2023-11-08 12:09] LABS: Anti-Smooth Muscle ABS 14 Units (0-19); Endomysial Antibody IgA Negative (Negative); Immunoglobulin A 205 mg/dL (90-386); QNTFERON TB Mitogen Value > 10.00 IU/mL (.); QNTFERON TB Nil Value 0.04 IU/mL (.); QNTFERON TB1+ Ag Value 0.06 IU/mL (.); QNTFERON TB2+ Ag Value 0.12 IU/mL (.); QNTIFERON TB Positive Criteria Negative (Negative); Testosterone, % Free 3.33 % (1.50-4.20); Testosterone, Free 10.79 ng/dL (5.00-21.00); Testosterone, Total 324 ng/dL (264-916); t-Transglutaminase IgA <2 U/mL (0-3)
== END | disposition home or self-care (01) ==
PROVIDERS: PCP Family Medicine; Referring Provider Internal Medicine Gastroenterology; Visit Provider Internal Medicine Gastroenterology
DX: K51.90 Ulcerative colitis, unspecified, without complications (principal); K22.70 Barrett's esophagus without dysplasia; K21.9 Gastro-esophageal reflux disease without esophagitis
CPT/HCPCS: 36415; 80053; 82784; 83516; 83615; 84402; 84403; 84439; 84443; 84481; 85025; 85652; 86140; 86255; 86480

== ENCOUNTER → 2024-04-09 | Outpatient (CLI) | payer OTHER, SELFPAY ==
[2024-04-09 09:35] LABS: Erythrocyte Sedimentation Rate 6 mm/hr (0-20)
[2024-04-09 09:56] LABS: CRP 4.42 mg/L (0.0-3.0)
[2024-04-11 20:08] LABS: Calprotectin, Stool 475 ug/g (0-120)
== END | disposition home or self-care (01) ==
LOC: LAB 08:20
PROVIDERS: PCP Family Medicine; Referring Provider Internal Medicine Gastroenterology; Visit Provider Internal Medicine Gastroenterology
DX: K22.70 Barrett's esophagus without dysplasia (principal); K51.90 Ulcerative colitis, unspecified, without complications; K21.9 Gastro-esophageal reflux disease without esophagitis
CPT/HCPCS: 36415; 83630; 83993; 85652; 86140